=== PATIENT | male | born 1930 | race Caucasian/White ===

== ENCOUNTER → 2016-10-13 | Outpatient (CLI) | payer MEDICARE ==
[~2016-10-13] MED LIST: ACET1TAB43 PO; AMLO10TA PO; AMLO10TA2 PO; ASPI-892 PO; ASPI-983 PO; ASPI500T15 PO; ATOR40TA PO; CELE200C PO; CLCX200C PO; CLOP75TA28 PO; CLPD75T PO; HCTZ; HYDR25TA4 PO; MELA5CAP PO; MELO7.5T46 PO; METO-274 PO; MTP100TCR PO; MUPI22OI29 EXT; SENN-20 PO; ZLP5T PO
--- OUTSIDE RECORDS SUMMARY | 2016-10-13 05:22 | XMS REPORT | Continuity of Care Document ---
Author Author [facility] Organization [facility] Address Unknown Phone Unavailable Care Team Providers Care Business Professor Name Role Phone GIANFRANCO ALEXANDER MD PCP Insurance Providers Payer Name Policy Number Subscriber Name Relationship [employer] Medicare [id number] Tiburcio Dacosta 18 Self / Same As Patient Blue Cross [facility] Supp [id number] Tiburcio Dacosta 18 Self / Same As Patient Advance Directives Directive Response Recorded Date/Time Advance Directives No 01/01/16 10:07am Health Care Power of Remote Broadcast Technician No 01/01/16 10:07am Resuscitation Status Full Code 01/01/16 10:07am Problems No problem information available. Medications Current Home Medications Medication Dose Units Route Directions Days/Qty Instructions Start Date Metoprolol Succinate 100 Mg 100 Mg Oral Daily 08/25/10 Zolpidem Tartrate 5 Mg 2.5 Mg Oral Bedtime as needed for Sleep TAKES 1/ 2 (5MG) TABLET 03/20/15 Clopidogrel Bisulfate 75 Mg 75 Mg Oral Daily 30 03/21/15 Amlodipine Besylate 10 Mg 10 Mg Oral Daily 01/01/16 Aspirin 500 Mg 500 Mg Oral As Needed as needed for Pain 01/01/16 Melatonin 5 Mg 5 Mg Oral As Needed as needed for Sleep 01/01/16 Past Home Medications Medication Directions Ordered Status [Hctz] , 08/25/10 Discontinued Amlodipine Besylate 10 Mg Tablet, 10 Mg Oral With Evening Meal 11/16/14 Discontinued Hydrochlorothiazide 25 Mg Tablet, 25 Mg Oral Daily @ 1200 11/16/14 Discontinued Celecoxib 200 Mg Capsule, 200 Mg Oral Bedtime 11/16/14 Discontinued Aspirin 81 Mg Tabec, 81 Mg Oral Daily 03/20/15 Discontinued Mupirocin 22 Gm Oint, 22 Gm External Three Times A Day 04/08/15 Discontinued Social History Social History Problem Response Recorded Date/Time Alcohol Use Denies Use 01/01/2016 10:11am Recreational Drug Use No 01/01/2016 10:11am Recent Foreign Travel No 01/01/2016 10:11am Recent Infectious Disease Exposure No 01/01/2016 10:11am Hospitalization with Isolation Denies 01/01/2016 10:11am HIV/AIDS No 01/01/2016 10:11am Smoking Status Former Smoker 01/01/2016 10:08am Do you dip or chew tobacco? No 01/01/2016 10:08am Query Response Start Date Stop Date Smoking Status Former Smoker 01/18/2015 Hospital Discharge Instructions No hospital discharge instructions. Plan of Care Prescriptions See Medication Section Functional Status No functional status results. Allergies, Adverse Reactions, Alerts Allergen Type Severity Reaction Status Last Updated milk ([id number]) Allergy Intermediate UPSET STOMACH Active 01/01/16 Immunizations Name Given Type Date of Pneumonia Vaccine 06/28/11 Historical Date of Influenza Vaccine 06/02/15 Historical Tetanus Booster (TDap) More than 5yrs Historical Vital Signs Acute Vital Signs Vital Response Date/Time Height 5 ft 6 in Weight 196 lb Body Mass Index 31.6 kg/m^2 Results Laboratory Results Test Name Result Units Flags Reference Collection Date/Time Result Date/ Time Comments White Blood Count 5.7 10^3/uL 4.3-11.0 01/01/2016 10:55am 01/01/2016 11 :11am Red Blood Count 5.57 10^6/uL 4.35-5.85 01/01/2016 10:55am 01/01/2016 11 :11am Hemoglobin 16.4 G/DL 13.3-17.7 01/01/2016 10:55am 01/01/2016 11:11am Hematocrit 49 % 40-54 01/01/2016 10:55am 01/01/2016 11:11am Mean Corpuscular Volume 87 FL 80-99 01/01/2016 10:55am 01/01/2016 11: 11am Mean Corpuscular Hemoglobin 29 PG 25-34 01/01/2016 10:55am 01/01/2016 11:11am Mean Corpuscular Hemoglobin Concent 34 G/DL 32-36 01/01/2016 10:55am 11:11am Red Cell Distribution Width 13.3 % 10.0-14.5 01/01/2016 10:55am 2015 11:11am Platelet Count 167 10^3/uL 130-400 01/01/2016 10:55am 01/01/2016 11: 11am Mean Platelet Volume 10.1 FL 7.4-10.4 01/01/2016 10:55am 01/01/2016 11: 11am Neutrophils (%) (Auto) 60 % 42-75 01/01/2016 10:55am 01/01/2016 11: 11am Lymphocytes (%) (Auto) 21 % 12-44 01/01/2016 10:55am 01/01/2016 11: 11am Monocytes (%) (Auto) 13 % H 0-12 01/01/2016 10:55am 01/01/2016 11:11am Eosinophils (%) (Auto) 6 % 0-10 01/01/2016 10:55am 01/01/2016 11:11am Basophils (%) (Auto) 0 % 0-10 01/01/2016 10:55am 01/01/2016 11:11am Neutrophils # (Auto) 3.4 X 10^3 1.8-7.8 01/01/2016 10:55am 01/01/2016 11:11am Lymphocytes # (Auto) 1.2 X 10^3 1.0-4.0 01/01/2016 10:55am 01/01/2016 11:11am Monocytes # (Auto) 0.7 X 10^3 0.0-1.0 01/01/2016 10:55am 01/01/2016 11: 11am Eosinophils # (Auto) 0.3 10^3/uL 0.0-0.3 01/01/2016 10:55am 01/01/2016 11:11am Basophils # (Auto) 0.0 10^3/uL 0.0-0.1 01/01/2016 10:55am 01/01/2016 11 :11am Prothrombin Time 13.2 SEC 12.2-14.7 01/01/2016 10:55am 01/01/2016 11: 22am INR Comment 1.0 0.8-1.4 01/01/2016 10:55am 01/01/2016 11:22am INTERPRETIVE DATA SUGGESTED THERAPEUTIC RANGE FOR INR'S: VENOUS THROMBOSIS, PULMONARY EMBOLISM, OR PREVENTION OF SYSTEMIC EMBOLISM (EG. IN ATRIAL FIBRILLATION): 2.0 - 3.0 MECHANICAL PROSTHETIC HEART VALVES: 2.5 - 3.5* *NOTE: INR'S UP TO 4.5 MAY BE NECESSARY IN SELECTED GROUPS OF HIGH RISK PATIENTS. [place] [employer]ANS CONSENSUS CONFERENCE ON ANTITHROMBOTIC THERAPY (2000). Urine Color YELLOW 01/02/2016 9:00am 01/02/2016 10:37am Urine Clarity CLEAR 01/02/2016 9:00am 01/02/2016 10:37am Urine pH 6 5-9 01/02/2016 9:00am 01/02/2016 10:37am Urine Specific [place] 1.015 * 1.016-1.022 01/02/2016 9:00am 2015 10:37am Urine Protein NEGATIVE NEGATIVE 01/02/2016 9:00am 01/02/2016 10:37am Urine Glucose (UA) NEGATIVE NEGATIVE 01/02/2016 9:00am 01/02/2016 10: 37am Urine RBC (Auto) NEGATIVE NEGATIVE 01/02/2016 9:00am 01/02/2016 10: 37am Urine Ketones NEGATIVE NEGATIVE 01/02/2016 9:00am 01/02/2016 10:37am Urine Nitrite NEGATIVE NEGATIVE 01/02/2016 9:00am 01/02/2016 10:37am Urine Bilirubin NEGATIVE NEGATIVE 01/02/2016 9:00am 01/02/2016 10: 37am Urine Urobilinogen NORMAL MG/DL NORMAL 01/02/2016 9:00am 01/02/2016 10: 37am Urine Leukocyte Esterase NEGATIVE NEGATIVE 01/02/2016 9:00am 2015 10:37am Urine RBC NONE /HPF 01/02/2016 9:00am 01/02/2016 10:37am Urine WBC NONE /HPF 01/02/2016 9:00am 01/02/2016 10:37am Urine Bacteria TRACE /HPF 01/02/2016 9:00am 01/02/2016 10:37am Urine Squamous Epithelial Cells RARE /HPF 01/02/2016 9:00am 2015 10:37am Urine Crystals NONE /LPF 01/02/2016 9:00am 01/02/2016 10:37am Urine Casts NONE /LPF 01/02/2016 9:00am 01/02/2016 10:37am Urine Mucus NEGATIVE /LPF 01/02/2016 9:00am 01/02/2016 10:37am Urine Culture Indicated NO 01/02/2016 9:00am 01/02/2016 10:37am Sodium Level 141 MMOL/L 135-145 01/01/2016 10:55am 01/01/2016 11:29am Potassium Level 4.2 MMOL/L 3.6-5.0 01/01/2016 10:55am 01/01/2016 11: 29am Chloride Level 107 MMOL/L 98-107 01/01/2016 10:55am 01/01/2016 11:29am Carbon Dioxide Level 26 MMOL/L 21-32 01/01/2016 10:55am 01/01/2016 11: 29am Anion Gap 8 MMOL/L 5-14 01/01/2016 10:55am 01/01/2016 11:29am Blood Urea Nitrogen 16 MG/DL 7-18 01/01/2016 10:55am 01/01/2016 11: 29am Creatinine 1.06 MG/DL 0.60-1.30 01/01/2016 10:55am 01/01/2016 11:29am BUN/Creatinine Ratio 15 01/01/2016 10:55am 01/01/2016 11:29am Estimat Glomerular Filtration Rate > 60 01/01/2016 10:55am 2015 11:29am GFR INTERPRETIVE DATA UNITS FOR ESTIMATED GFR (eGFR): mL/min/1.73 M2 REFERENCE RANGE FOR ESTIMATED GFR (eGFR) eGFR NORMAL eGFR >60 MODERATELY DECREASED eGFR 30-59 SEVERLY DECREASED eGFR 15-29 KIDNEY FAILURE <15 (OR DIALYSIS) Glucose Level 100 MG/DL 70-105 01/01/2016 10:55am 01/01/2016 11:29am Calcium Level 8.8 MG/DL 8.5-10.1 01/01/2016 10:55am 01/01/2016 11:29am Microbiology Results Procedure Source Result Collection Date/Time Result Date/Time MRSA Screen Nasal MRSA not isolated 01/01/2016 10:50am 01/02/2016 3:08pm Procedures Procedure Status Date Provider(s) Tracing only of electrocardiogram Completed 01/01/16 GERALD JOHNSTON DO Encounters Encounter Location Arrival/Admit Date Discharge/Depart Date Attending Provider Discharged Recurring [facility] 01/01/16 9:55am 11:59pm GERALD JOHNSTON DO
[2016-10-13 05:47] LABS: ALBUMIN 3.7 G/DL (3.2-4.5); BILIRUBIN,TOTAL 0.7 MG/DL (0.1-1.0); CALCIUM 8.8 MG/DL (8.5-10.1); CREATININE SERUM 1.15 MG/DL (0.60-1.30); POTASSIUM 4.1 MMOL/L (3.6-5.0); TOTAL PROTEIN 6.8 G/DL (6.4-8.2)
== END ==
LOC: LAB 05:19
PROVIDERS: ATTEND Nurse Practitioner Family
DX: I25.10 Atherosclerotic heart disease of native coronary artery without angina pectoris (principal); E78.5 Hyperlipidemia, unspecified
CPT/HCPCS: 36415; 80053; 80061

== ENCOUNTER → 2016-10-14 | Outpatient (CLI) | payer MEDICARE ==
--- OUTSIDE RECORDS SUMMARY | 2016-10-14 12:23 | XMS REPORT | Continuity of Care Document ---
Author Author [facility] Organization [facility] Address Unknown Phone Unavailable Care Team Providers Care Tile Setter Supervisor Name Role Phone GIANFRANCO ALEXANDER MD PCP Insurance Providers Payer Name Policy Number Subscriber Name Relationship Wps Medicare [id number] Tiburcio Dacosta 18 Self / Same As Patient Blue Cross [facility] Supp [id number] Tiburcio Dacosta 18 Self / Same As Patient Advance Directives Directive Response Recorded Date/Time Advance Directives No 01/01/16 10:07am Health Care Power of Cosmetic Sales No 01/01/16 10:07am Resuscitation Status Full Code [...] Type Severity Reaction Status Last Updated milk ([id number]) Allergy Intermediate UPSET STOMACH Active 01/01/16 Immunizations [...] SELECTED GROUPS OF HIGH RISK PATIENTS. [place] [place] [employer] CONSENSUS CONFERENCE ON ANTITHROMBOTIC THERAPY (2000). Urine Color YELLOW 01/02/2016 9:00am 01/02/2016 10:37am Urine Clarity CLEAR 01/02/2016 9:00am 01/02/2016 10:37am Urine pH 6 5-9 01/02/2016 9:00am 01/02/2016 10:37am Urine Specific [place] 1.015 * 1.016-1.022 01/02/2016 9:00am 2015 10:37am [...] Discharge/Depart Date Attending Provider Discharged Recurring [facility] 01/01/16 9:55am 11:59pm GERALD JOHNSTON DO
== END ==
LOC: RAD 12:12
PROVIDERS: ATTEND Internal Medicine Cardiovascular Disease
DX: I25.10 Atherosclerotic heart disease of native coronary artery without angina pectoris (principal); I65.23 Occlusion and stenosis of bilateral carotid arteries; I10 Essential (primary) hypertension; I73.9 Peripheral vascular disease, unspecified
CPT/HCPCS: 93923

== ENCOUNTER → 2017-01-31 | Outpatient (CLI) | payer MEDICARE ==
[~2017-01-31] MED LIST changes: +GADOBUTROL 10 MMOL/10 ML (GADAVIST) VIAL IV ONE
[2017-01-31 13:07] LABS: BLOOD UREA NITROGEN 16 MG/DL (7-18); BUN/CREATININE RATIO 14; CREATININE SERUM 1.13 MG/DL (0.60-1.30); GFR ESTIMATED > 60
--- NOTE | 2017-01-31 14:55 | Diagnostic Imaging Report ---
INDICATION: Chronic dizziness. Increasing vision loss since June of 2016. FINDINGS: The ventricles are normal in size, shape and position. There is no diffusion restriction with no acute parenchymal edema, hemorrhage, mass or abnormal parenchymal enhancement. There is cortical atrophy present. There are periventricular white matter changes present consistent with small vessel disease. There is no extra-axial mass or abnormal meningeal enhancement. Images through the orbits show no intraorbital or intraocular abnormality seen. The extraocular muscles are symmetrical and normal in appearance as are the optic nerves. There is no abnormal enhancement. IMPRESSION: There is age-related atrophy. There are changes of small vessel disease involving the white matter. No acute abnormality is seen. No intraorbital abnormality is seen. Dictated by: Dictated on workstation # [id number]
== END ==
LOC: RAD 12:31
PROVIDERS: ATTEND Optometrist
DX: H47.019 Ischemic optic neuropathy, unspecified eye (principal)
CPT/HCPCS: 36415; 70553; 82565; 84520

== ENCOUNTER 2017-05-11 17:04 | Emergency (ER) | payer MEDICARE ==
[~2017-05-11] VITALS: Ht 167.6 cm; Wt 93.0 kg
[~2017-05-11 17:04] MED LIST changes: -GADOBUTROL 10 MMOL/10 ML (GADAVIST) VIAL IV ONE
--- NOTE | 2017-05-11 17:20 | ED GI ---
General Chief Complaint: Rect Problems Stated Complaint: RECTAL BLEEDING Nursing Triage Note: PT REPORTS HE HAD A PROCEDURE ON HIS PROSTATE AT [address] CORDOVA. PT REPORTS RECTAL BLEEDING AT 1615. Sepsis Screen: No Definite Risk Source of Information: Patient Exam Limitations: No Limitations History of Present Illness Time Seen By Provider: 17:20 Initial Comments He had a transrectal prostate biopsy done today here by Dr. Cordova. He is on aspirin and Plavix but has been off of the Plavix for 1 week prior to this procedure. He is on these for history of coronary stents. Timing/Duration: 1-2 Days Severity/Quality: Moderate Radiation: No Radiation Activities at Onset: None Allergies and Home Medications Allergies Coded Allergies: tramadol (Unverified Allergy, Intermediate, 09/02/16) meclizine (Unverified Allergy, Mild, 09/02/16) Home Medications Amlodipine Besylate 10 Mg Tablet, 10 MG PO DAILY, (Reported) Aspirin 81 Mg Tablet.dr, 81 MG PO DAILY, (Reported) Atorvastatin Calcium 40 Mg Tablet, 40 MG PO HS, #30 Ref 5 Prescribed by: MANDEEP SNIDER on 09/03/16 0938 Clopidogrel Bisulfate 75 Mg Tablet, 75 MG PO 1700, (Reported) Melatonin 5 Mg Capsule, 5 MG PO HS PRN for SLEEP, (Reported) Meloxicam 7.5 Mg Tablet, 7.5 MG PO DAILY@1200, (Reported) Metoprolol Succinate 100 Mg Tab.er.24h, 100 MG PO DAILY, (Reported) Zolpidem Tartrate 5 Mg Tablet, 2.5 MG PO HS PRN for SLEEP, (Reported) TAKES 1/2 (5MG) TABLET Review of Systems Constitutional: see HPI EENTM: No Symptoms Reported Respiratory: No Symptoms Reported Cardiovascular: No Symptoms Reported Gastrointestinal: See HPI, Rectal Bleeding Genitourinary: No Symptoms Reported Musculoskeletal: no symptoms reported Skin: no symptoms reported Psychiatric/Neurological: No Symptoms Reported Endocrine: No Symptoms Reported Hematologic/Lymphatic: No Symptoms Reported Past Fdxksqm-[id number]-Bsoxqr Hx Patient Social History Alcohol Use: Denies Use Recreational Drug Use: No Smoking Status: Former Smoker Type Used: Pipe Former Smoker/When Quit: Jan 18, 2015 Recent Foreign Travel: No Contact w/Someone Who Travel: No Recent Infectious Disease Expo: No Recent Hopitalizations: No Immunizations Up To Date Tetanus Booster (TDap): More than 5yrs Date of Pneumonia Vaccine: Sep 02, 2013 Date of Influenza Vaccine: Jun 03, 2016 Seasonal Allergies Seasonal Allergies: Yes Surgeries HX Surgeries: Yes Surgeries: Cardiac, Orthopedic Respiratory Hx Respiratory Disorders: No Cardiovascular Hx Cardiac Disorders: Yes (HX STENTS-summer) Cardiac Disorders: Hypertension Neurological Hx Neurological Disorders: No Reproductive System HIV/AIDS: No Genitourinary Hx Genitourinary Disorders: No Gastrointestinal Hx Gastrointestinal Disorders: No Musculoskeletal Hx Musculoskeletal Disorders: Yes (OA LEFT KNEE) Musculoskeletal Disorders: Degenerate Disk Disease, Arthritis, Chronic Back Pain Endocrine Hx Endocrine Disorders: No HEENT HX ENT Disorders: Yes (GLASSES, DENTURES) HEENT Disorders: Cataract Loss of Vision: Bilateral Hearing Impairment: Bilateral Hearing Aide Cancer Hx Cancer: Yes Cancer: Skin Psychosocial Hx Psychiatric Problems: No Integumentary HX Skin/Integumentary Disorder: Yes (HX SKIN CANCER, DRY SKIN) Blood Transfusions Hx Blood Disorders: No Adverse Reaction to a Blood Tr: No Physical Exam Vital Signs VS - Last 72 Hours, by Label 05/11/17 17:10 Temp 97.9 Pulse 77 Resp 16 B/P (MAP) 141/87 Pulse Ox 95 Capillary Refill : Less Than 3 Seconds General Appearance: WD/WN, no apparent distress HEENT: PERRL/EOMI, normal ENT inspection Neck: non-tender, full range of motion Respiratory: normal breath sounds, no respiratory distress, no accessory muscle use Gastrointestinal: normal bowel sounds, non tender, soft Rectal: other (there is some bright red blood at the anus. There is no active bleeding at this time. He is certainly not near syncopal, hypotensive or anywhere near hemorrhagic shock.) Progress/Results/Core Measures Results/Orders Lab Results Laboratory Tests Test 05/11/17 17:54 Range/Units White Blood Count 6.2 4.3-11.0 10^3/uL Red Blood Count 5.11 4.35-5.85 10^6/uL Hemoglobin 14.8 13.3-17.7 G/DL Hematocrit 45 40-54 % Mean Corpuscular Volume 88 80-99 FL Mean Corpuscular Hemoglobin 29 25-34 PG Mean Corpuscular Hemoglobin Concent 33 32-36 G/DL Red Cell Distribution Width 13.4 10.0-14.5 % Platelet Count 152 130-400 10^3/uL Mean Platelet Volume 10.4 7.4-10.4 FL Neutrophils (%) (Auto) 68 42-75 % Lymphocytes (%) (Auto) 15 12-44 % Monocytes (%) (Auto) 12 0-12 % Eosinophils (%) (Auto) 5 0-10 % Basophils (%) (Auto) 0 0-10 % Neutrophils # (Auto) 4.2 1.8-7.8 X 10^3 Lymphocytes # (Auto) 0.9 L 1.0-4.0 X 10^3 Monocytes # (Auto) 0.8 0.0-1.0 X 10^3 Eosinophils # (Auto) 0.3 0.0-0.3 10^3/uL Basophils # (Auto) 0.0 0.0-0.1 10^3/uL My Orders Orders - ELLY FAM APRN Cbc With Automated Diff (05/11/17 17:14) Vital Signs/I&O Vital Sign - Last 12Hours 05/11/17 17:10 Temp 97.9 Pulse 77 Resp 16 B/P (MAP) 141/87 Pulse Ox 95 Blood Pressure Mean: 105 Departure Communication Progress Notes 1803-I did speak with Dr. Cordova. Some bleeding as expected. He would like to have the patient stop both the aspirin and the Plavix for 2-3 days until he is without any rectal bleeding then he may resume it. Impression Impression: Primary Impression: postoperative bleeding Disposition: 01 HOME, SELF-CARE Condition: Stable Departure-Patient Inst. Decision time for Depature: 18:02 Referrals: GIANFRANCO ALEXANDER MD (PCP/Family) Primary Care Physician Patient Instructions: NO INSTRUCTIONS GIVEN Add. Discharge Instructions: 1. Do not take your aspirin or Plavix for the next 3 days. Then if you are not bleeding you may resume them 2. Take a stool softener daily and expect to have a little persistent bleeding for the next 1-2 days at least with bowel movements. Reasons to become concerned are if you are passing clots of blood from the rectum, become lightheaded or short of breath or pass out. If you have any of these things you should return to the emergency room All discharge instructions reviewed with patient and/or family. Voiced understanding. ELLY FAM APRN May 11, 2017 17:20
[2017-05-11 18:02] LABS: BASOPHILS % (AUTO) 0 % (0-10); EOSINOPHILS # (AUTO) 0.3 10^3/uL (0.0-0.3); EOSINOPHILS % (AUTO) 5 % (0-10); LYMPHOCYTES # (AUTO) 0.9 X 10^3 (1.0-4.0); LYMPHOCYTES % (AUTO) 15 % (12-44); MEAN CORPUSCULAR HEMOGLOBIN 29 PG (25-34); MEAN CORPUSCULAR HGB CONC 33 G/DL (32-36); MEAN CORPUSCULAR VOLUME 88 FL (80-99); MEAN PLATELET VOLUME 10.4 FL (7.4-10.4); MONOCYTES # (AUTO) 0.8 X 10^3 (0.0-1.0); MONOCYTES % (AUTO) 12 % (0-12); NEUTROPHILS # (AUTO) 4.2 X 10^3 (1.8-7.8); NEUTROPHILS % (AUTO) 68 % (42-75); PLATELET COUNT 152 10^3/uL (130-400); RED BLOOD COUNT 5.11 10^6/uL (4.35-5.85); RED CELL DISTRIBUTION WIDTH 13.4 % (10.0-14.5); WHITE BLOOD COUNT 6.2 10^3/uL (4.3-11.0)
[2017-05-11 18:24] VITALS: BP 145/82
== END 2017-05-11 18:24 | disposition home or self-care (01) ==
LOC: EDUNIT# 17:04 → ER 17:05
DX: N99.820 Postprocedural hemorrhage of a genitourinary system organ or structure following a genitourinary system procedure (principal); I10 Essential (primary) hypertension; M19.90 Unspecified osteoarthritis, unspecified site; Z98.890 Other specified postprocedural states; Z85.828 Personal history of other malignant neoplasm of skin; Z87.891 Personal history of nicotine dependence; Z79.82 Long term (current) use of aspirin; Z79.02 Long term (current) use of antithrombotics/antiplatelets; Z95.5 Presence of coronary angioplasty implant and graft
CPT/HCPCS: 36415; 85025; 99283

== ENCOUNTER → 2017-05-21 | Outpatient (CLI) | payer MEDICARE ==
[~2017-05-21] MED LIST changes: +CATHETER FLUSH 10 ML SYR IV PRN; +IOHEXOL 350 MG/ML 100 ML (OMNIPAQUE 350) VIAL IV ONE; +NS 100 ML (IVPB) BAG IV ONE
[2017-05-21 10:21] LABS: BLOOD UREA NITROGEN 15 MG/DL (7-18); BUN/CREATININE RATIO 15; CREATININE SERUM 1.02 MG/DL (0.60-1.30); GFR ESTIMATED > 60
--- NOTE | 2017-05-21 11:51 | Diagnostic Imaging Report ---
PROCEDURE: CT abdomen and pelvis with contrast. TECHNIQUE: Multiple contiguous axial images were obtained through the abdomen and pelvis after administration of intravenous contrast. INDICATION: History of prostate cancer. COMPARISON: 10/18/2008 FINDINGS: Included views of the lung bases show multiple calcified pulmonary granuloma. Multiple calcified right hilar lymph nodes are also noted. There is a partially visualized noncalcified micronodule on the left that measures approximately 6 mm. Note is made that this is new when compared to 10/18/2008. Note is made of significant calcified coronary atherosclerosis. CT abdomen: There is colonic diverticulosis, but no CT evidence of acute diverticulitis. Normal appendix is identified. Small bowel loops are nondistended. Evaluation of the liver demonstrates innumerable rounded hypodense and hypoenhancing foci scattered throughout. These are too small to adequately characterize based on this exam, but overall size and distribution is stable compared to prior study. This favors multiple benign cysts. Gallstone is noted within the lumen of the gallbladder. There is no gallbladder wall thickening or pericholecystic free fluid on this exam. The kidneys, bilateral adrenal glands, spleen, and pancreas have a normal CT appearance. There is no loculated fluid collection, free fluid, nor free air within the abdomen. No abnormal mesenteric or retroperitoneal adenopathy is seen. There is moderate calcified aortic and arterial atherosclerosis. Bony structures show no acute abnormalities. CT pelvis: Urinary bladder is grossly unremarkable. There is no loculated fluid collection, free fluid, nor free air within the pelvis. There is a prominent presacral lymph node that measures 1.6 cm in diameter. This is new when compared to 10/18/2008. Prominent right-sided iliac chain lymph node is also noted and measures 1.4 x 1 cm. This also appears to be new. Osseous structures show no new lytic or blastic lesions. IMPRESSION: 1. Interval development of right sided iliac chain and presacral lymph nodes. Given the clinical history of prostate cancer, these findings are concerning for metastatic disease. 2. Innumerable hypodense hypoenhancing foci scattered throughout the liver. Again, overall appearance is stable suggesting benign cysts. 3. Cholelithiasis. 4. Multiple calcified granuloma within the visualized portions of the lung bases and multiple calcified right hilar lymph nodes. 5. Partially visualized noncalcified pulmonary micronodule within the left lower lobe. Further characterization with dedicated postcontrast CT chest is recommended. Dictated by: Dictated on workstation # [id number]
--- NOTE | 2017-05-21 18:05 | Diagnostic Imaging Report ---
EXAMINATION: Whole body bone scan. INDICATION: Prostate CA. TECHNIQUE: This study was performed following administration of 26.9 mCi of 99m-technetium MDP. Anterior and posterior whole body images were obtained. Lateral spot films of the skull and thorax were also obtained. COMPARISON: There are no previous nuclear medicine bone scans available for comparison. FINDINGS: On this study, there is generalized distribution of the radiotracer throughout the osseous structures. There is no focal area of increased or decreased activity to suggest metastatic disease related to the patient's diagnosis of prostate carcinoma. There are areas of slightly increased activity involving the shoulder joints and spine. These are probably degenerative in nature. 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 There is no abnormal accumulation of the radiotracer in this area to suggest loosening of the prosthesis. Both kidneys do show excretion of the radiotracer. IMPRESSION: There is no evidence for metastatic skeletal disease. Dictated by: Dictated on workstation # [id number]
== END ==
LOC: CARD 09:45
PROVIDERS: ATTEND Urology
DX: C61 Malignant neoplasm of prostate (principal); K80.20 Calculus of gallbladder without cholecystitis without obstruction; R91.8 Other nonspecific abnormal finding of lung field
CPT/HCPCS: 36415; 74177; 78306; 82565; 84520

== ENCOUNTER 2017-08-20 19:59 | Emergency (ER) | payer MEDICARE ==
[~2017-08-20] VITALS: Ht 170.2 cm; Wt 90.7 kg
[~2017-08-20 19:59] MED LIST changes: -CATHETER FLUSH 10 ML SYR IV PRN; -IOHEXOL 350 MG/ML 100 ML (OMNIPAQUE 350) VIAL IV ONE; -METO-274 PO; +METO-395 PO; -NS 100 ML (IVPB) BAG IV ONE
--- NOTE | 2017-08-20 20:28 | ED General ---
General Chief Complaint: Cardiac/General Problems Stated Complaint: SWELLING IN LEGS AND ANKLES Nursing Triage Note: PATIENT HAS EXPERIENCED INCREASED BILAT LOWER EXTREM. SWELLING OVER THE PAST COUPLE OF DAYS. Nursing Sepsis Screen: No Definite Risk Source of Information: Patient, Family Exam Limitations: No Limitations History of Present Illness Time Seen by Provider: 20:10 Initial Comments Here with report of bilateral lower extremity swelling over the last few days. Does admit to having increased salt in his diet recently. Denies chest pain or breathing problems although does state that he does have some shortness of breath. Notes recent weight gain. Swelling is up to the knees bilateral. Denies recent injury. Denies fever or chills although does have hot flashes with his prostate medicines. Denies history of heart failure. Timing/Duration: 3-4 Days Severity: Moderate Associated Systoms: No Chest Pain, No Fever/Chills, No Nausea/Vomiting, No Weakness Allergies and Home Medications Allergies Coded Allergies: tramadol (Unverified Allergy, Intermediate, 09/02/16) meclizine (Unverified Allergy, Mild, 09/02/16) Home Medications Amlodipine Besylate 10 Mg Tablet, 10 MG PO DAILY, (Reported) Aspirin 81 Mg Tablet.dr, 81 MG PO DAILY, (Reported) Atorvastatin Calcium 40 Mg Tablet, 40 MG PO HS, #30 Ref 5 Prescribed by: MANDEEP SNIDER on 09/03/16 0938 Clopidogrel Bisulfate 75 Mg Tablet, 75 MG PO 1700, (Reported) Melatonin 5 Mg Capsule, 5 MG PO HS PRN for SLEEP, (Reported) Meloxicam 7.5 Mg Tablet, 7.5 MG PO DAILY@1200, (Reported) Metoprolol Succinate 100 Mg Tab.er.24h, 100 MG PO DAILY, (Reported) Zolpidem Tartrate 5 Mg Tablet, 2.5 MG PO HS PRN for SLEEP, (Reported) TAKES 1/2 (5MG) TABLET Constitutional: see HPI, No chills, No fever EENTM: no symptoms reported Respiratory: see HPI Cardiovascular: see HPI, No chest pain, No edema Gastrointestinal: No abdominal pain, No nausea, No vomiting Genitourinary: no symptoms reported Musculoskeletal: see HPI, muscle pain (lower extremities knees down.), No muscle cramps Skin: No change in color, No lesions Psychiatric/Neurological: No Symptoms Reported All Other Systems Reviewed Negative Unless Noted: Yes Past Nihlekc-Aaddom-Txgudo Hx Patient Social History Alcohol Use: Denies Use Recreational Drug Use: No Type Used: Pipe Former Smoker, Quit: Sep 02, 2014 Recent Foreign Travel: No Contact w/Someone Who Travel: No Recent Infectious Disease Expo: No Recent Hopitalizations: No Immunizations Up To Date Tetanus Booster (TDap): More than 5yrs Date of Pneumonia Vaccine: Sep 02, 2013 Date of Influenza Vaccine: Jun 03, 2016 Seasonal Allergies Seasonal Allergies: Yes Surgeries History of Surgeries: Yes Surgeries: Cardiac, Orthopedic Respiratory History of Respiratory Disorde: No Cardiovascular History of Cardiac Disorders: Yes Cardiac Disorders: Hypertension Neurological History of Neurological Disord: No Reproductive System HIV/AIDS: No Gastrointestinal History of Gastrointestinal Di: No Musculoskeletal History of Musculoskeletal Dis: Yes Musculoskeletal Disorders: Degenerate Disk Disease, Arthritis, Chronic Back Pain HEENT History of HEENT Disorders: Yes HEENT Disorders: Cataract Loss of Vision: Bilateral Hearing Impairment: Bilateral Hearing Aide Cancer History of Cancer: Yes Cancer: Skin Blood Transfusions Adverse Reaction to a Blood Tr: No Reviewed Nursing Assessment Reviewed/Agree w Nursing PMH: Yes Physical Exam Vital Signs Vital Sign - Last 12Hours 08/20/17 20:07 Temp 97.9 Pulse 83 Resp 20 B/P (MAP) 170/83 Pulse Ox 94 O2 Delivery Room Air Capillary Refill : Less Than 3 Seconds General Appearance: No Apparent Distress, WD/WN HEENT: PERRL/EOMI, Pharynx Normal Neck: Non Tender, Supple Respiratory: Lungs Clear, Normal Breath Sounds Cardiovascular: Regular Rate, Rhythm, No Murmur Gastrointestinal: Non Tender, Soft Back: Normal Inspection, No CVA Tenderness, No Vertebral Tenderness Extremity: Normal Range of Motion, Pedal Edema (3+ edema up to the level of the knees bilateral) Neurologic/Psychiatric: Alert, Oriented x3 Skin: Normal Color, Warm/Dry Progress/Results/Core Measures Suspected Sepsis Recent Fever Within 48 Hours: No Infection Criteria Present: None New/Unexplained Altered Menta: No Sepsis Screen: No Definite Risk Sepsis Diagnosis: SIRS Temperature:97.9 Pulse: 83 Respiratory Rate: 20 Laboratory Tests 08/20/17 20:50: White Blood Count 6.0 Blood Pressure 170 /83 Mean: 112 Laboratory Tests 08/20/17 20:50: Creatinine 1.11, Platelet Count 150, Total Bilirubin 0.5 Results/Orders Lab Results Laboratory Tests Test 08/20/17 20:50 Range/Units White Blood Count 6.0 4.3-11.0 10^3/uL Red Blood Count 4.45 4.35-5.85 10^6/uL Hemoglobin 13.2 L 13.3-17.7 G/DL Hematocrit 39 L 40-54 % Mean Corpuscular Volume 87 80-99 FL Mean Corpuscular Hemoglobin 30 25-34 PG Mean Corpuscular Hemoglobin Concent 34 32-36 G/DL Red Cell Distribution Width 12.5 10.0-14.5 % Platelet Count 150 130-400 10^3/uL Mean Platelet Volume 11.2 H 7.4-10.4 FL Neutrophils (%) (Auto) 53 42-75 % Lymphocytes (%) (Auto) 20 12-44 % Monocytes (%) (Auto) 14 H 0-12 % Eosinophils (%) (Auto) 11 H 0-10 % Basophils (%) (Auto) 1 0-10 % Neutrophils # (Auto) 3.2 1.8-7.8 X 10^3 Lymphocytes # (Auto) 1.2 1.0-4.0 X 10^3 Monocytes # (Auto) 0.9 0.0-1.0 X 10^3 Eosinophils # (Auto) 0.7 H 0.0-0.3 10^3/uL Basophils # (Auto) 0.0 0.0-0.1 10^3/uL Sodium Level 140 135-145 MMOL/L Potassium Level 3.8 3.6-5.0 MMOL/L Chloride Level 106 98-107 MMOL/L Carbon Dioxide Level 23 21-32 MMOL/L Anion Gap 11 5-14 MMOL/L Blood Urea Nitrogen 20 H 7-18 MG/DL Creatinine 1.11 0.60-1.30 MG/DL Estimat Glomerular Filtration Rate > 60 BUN/Creatinine Ratio 18 Glucose Level 146 H 70-105 MG/DL Calcium Level 8.9 8.5-10.1 MG/DL Magnesium Level 2.1 1.8-2.4 MG/DL Total Bilirubin 0.5 0.1-1.0 MG/DL Aspartate Amino Transf (AST/SGOT) 27 5-34 U/L Alanine Aminotransferase (ALT/SGPT) 31 0-55 U/L Alkaline Phosphatase 67 40-136 U/L B-Type Natriuretic Peptide 87.3 <100.0 PG/ML Total Protein 6.9 6.4-8.2 GM/DL Albumin 3.6 3.2-4.5 GM/DL My Orders Orders - AIDAN CUEVA MD BNP (08/20/17 20:17) Cbc With Automated Diff (08/20/17 20:17) Comprehensive Metabolic Panel (08/20/17 20:17) Magnesium (08/20/17 20:17) Chest Pa/Lat (2 View) (08/20/17 20:17) Saline Lock/Iv-Start (08/20/17 20:17) Ekg Tracing (08/20/17 20:17) Vital Signs/I&O Vital Sign - Last 12Hours 08/20/17 20:07 Temp 97.9 Pulse 83 Resp 20 B/P (MAP) 170/83 Pulse Ox 94 O2 Delivery Room Air Capillary Refill : Less Than 3 Seconds Blood Pressure Mean: 112 Progress Note : Progress Note Seen and evaluated. IV, labs, EKG and chest x-ray ordered. Monitor patient. 2200: Labs and chest x-ray reviewed. We discussed options for therapy including decrease in sodium. We will use Lasix for 3 days only and then he will follow-up with his doctor. He will start that in the morning because he doesn't want to be up all night urinating. This is reasonable. Discharged home with return precautions. Patient verbalize understanding instructions and agreement with plan. ECG Initial ECG Impression Date: Aug 20, 2017 Initial ECG Impression Time: 20:20 Initial ECG Rate: 64 Initial ECG Rhythm: Normal Sinus Comment Sinus rhythm with left axis deviation. First degree AV block and left bundle branch block. Similar to previous of 02 September 2016. No evidence of ST elevation NV. Interpreted by me. Diagnostic Imaging Diagonstic Imaging: Xray Plain Films/CT/US/NM/MRI: chest Comments VIA [facility]. [place], [place] NAME: TIBURCIO DACOSTA [facility] REC#: [id number] PT STATUS: REG ER : 1930 PHYSICIAN: AIDAN CUEVA MD ADMIT DATE: 08/20/17/ER Draft Date of Exam:08/20/17 CHEST PA/LAT (2 VIEW) EXAM: CHEST PA/LAT (2 VIEW) INDICATION: Lower extremity swelling. COMPARISON: Chest radiograph 04/01/2016. FINDINGS: Normal heart size and pulmonary vascularity. Calcified hilar lymph nodes and calcified granulomas in the right lung base. Elevation of right hemidiaphragm. No new focal pulmonary opacity, pleural effusion or pneumothorax. Postoperative changes in the cervical spine. No acute osseous findings. IMPRESSION: No acute cardiopulmonary findings. Dictated on workstation # [id number] Dict: 08/20/[id number] Trans: 08/20/172137 [id number] Interpreted by: MISA IRELAND MD Electronically signed by: Departure Impression Impression: Primary Impression: Pedal edema Disposition: 01 HOME, SELF-CARE Condition: Stable Departure-Patient Inst. Decision time for Depature: 22:00 Referrals: GIANFRANCO ALEXANDER MD (PCP/Family) Primary Care Physician Patient Instructions: Dependent Edema (DC) Add. Discharge Instructions: All discharge instructions reviewed with patient and/or family. Voiced understanding. Decrease sodium intake. Take medications as directed. Follow-up with your doctor early next week for recheck and further evaluation. Return for worse pain, fever, vomiting or weakness, breathing problems, chest pain or other concerns as needed. Scripts Furosemide (Furosemide) 40 Mg Tablet 40 MG PO DAILY for 3 Days, #3 TAB 0 Refills Prov: AIDAN CUEVA MD 08/20/17 Copy Copies To 1: GIANFRANCO ALEXANDER MD, TIMOTHY D MD Aug 20, 2017 20:28
[2017-08-20 20:59] LABS: BASOPHILS % (AUTO) 1 % (0-10); EOSINOPHILS # (AUTO) 0.7 10^3/uL (0.0-0.3); EOSINOPHILS % (AUTO) 11 % (0-10); LYMPHOCYTES # (AUTO) 1.2 X 10^3 (1.0-4.0); LYMPHOCYTES % (AUTO) 20 % (12-44); MEAN CORPUSCULAR HEMOGLOBIN 30 PG (25-34); MEAN CORPUSCULAR HGB CONC 34 G/DL (32-36); MEAN CORPUSCULAR VOLUME 87 FL (80-99); MEAN PLATELET VOLUME 11.2 FL (7.4-10.4); MONOCYTES # (AUTO) 0.9 X 10^3 (0.0-1.0); MONOCYTES % (AUTO) 14 % (0-12); NEUTROPHILS # (AUTO) 3.2 X 10^3 (1.8-7.8); NEUTROPHILS % (AUTO) 53 % (42-75); PLATELET COUNT 150 10^3/uL (130-400); RED BLOOD COUNT 4.45 10^6/uL (4.35-5.85); RED CELL DISTRIBUTION WIDTH 12.5 % (10.0-14.5)
[2017-08-20 21:22] LABS: ALANINE AMINOTRANSFERASE 31 U/L (0-55); ALBUMIN 3.6 GM/DL (3.2-4.5); ANION GAP 11 MMOL/L (5-14); ASPARTATE AMINO TRANSFERASE 27 U/L (5-34); BILIRUBIN,TOTAL 0.5 MG/DL (0.1-1.0); BLOOD UREA NITROGEN 20 MG/DL (7-18); BUN/CREATININE RATIO 18; CALCIUM 8.9 MG/DL (8.5-10.1); CARBON DIOXIDE 23 MMOL/L (21-32); CHLORIDE 106 MMOL/L (98-107); CREATININE SERUM 1.11 MG/DL (0.60-1.30); GFR ESTIMATED > 60; GLUCOSE 146 MG/DL (70-105); MAGNESIUM 2.1 MG/DL (1.8-2.4); POTASSIUM 3.8 MMOL/L (3.6-5.0); SODIUM 140 MMOL/L (135-145); TOTAL PROTEIN 6.9 GM/DL (6.4-8.2)
--- NOTE | 2017-08-20 21:38 | Diagnostic Imaging Report ---
EXAM: CHEST PA/LAT (2 VIEW) INDICATION: Lower extremity swelling. COMPARISON: Chest radiograph 04/01/2016. FINDINGS: Normal heart size and pulmonary vascularity. Calcified hilar lymph nodes and calcified granulomas in the right lung base. Elevation of right hemidiaphragm. No new focal pulmonary opacity, pleural effusion or pneumothorax. Postoperative changes in the cervical spine. No acute osseous findings. IMPRESSION: No acute cardiopulmonary findings. Dictated by: Dictated on workstation # [id number]
[2017-08-20] MEDS ORDERED: FURO40TA4 PO (22:02)
[2017-08-20 22:10] VITALS: BP 140/88
== END 2017-08-20 22:10 | disposition home or self-care (01) ==
LOC: EDUNIT# 19:59 → ER 20:00
DX: R60.0 Localized edema (principal); I10 Essential (primary) hypertension; M19.90 Unspecified osteoarthritis, unspecified site; Z79.82 Long term (current) use of aspirin; Z87.891 Personal history of nicotine dependence
CPT/HCPCS: 36415; 71020; 80053; 83735; 83880; 85025

== ENCOUNTER → 2017-09-15 | Outpatient (CLI) | payer MEDICARE ==
[~2017-09-15] VITALS: Ht 167.6 cm; Wt 93.4 kg
[~2017-09-15] MED LIST changes: +CATHETER FLUSH 10 ML SYR IV PRN; +FURO40TA4 PO; +REGADENOSON 0.4 MG/5 ML SYR (LEXISCAN) IV ONE
[2017-09-15 09:01] VITALS: BP 161/66
[2017-09-15 09:04] VITALS: BP 119/56
--- NOTE | 2017-09-15 23:41 | STRESS TEST ---
DATE OF SERVICE: 09/15/2017 RESTING AND POST-REGADENOSON TECHNETIUM-99M TETROFOSMIN SPECT CT IMAGING ORDERING PHYSICIAN: Leah Kolb MD, MA, FACP, FACC CLINICAL DIAGNOSIS: Coronary artery disease. Baseline images were carried out after injection of 10.09 mCi of technetium-99m tetrofosmin. This was followed by 0.4 mg regadenoson and 33 mCi of technetium-99m tetrofosmin for stress imaging. The electrocardiogram showed sinus rhythm with left bundle branch block. The electrocardiogram did not change significantly with the regadenoson infusion. Isolated premature ventricular contractions were seen. The patient noted mild shortness of breath following regadenoson infusion, which resolved in a few minutes. Review of images at rest and following stress does not indicate any significant perfusion defects consistent with significant myocardial ischemia or infarction. Gated images show a left ventricular ejection fraction of 66%. No distinct regional wall motion abnormalities seen. Left ventricular end diastolic volume is 62 mL. TID is absent (1.02). CONCLUSIONS: 1. No evidence of any significant myocardial ischemia or infarction on this study. 2. Normal regional wall motion. 3. Normal global left ventricular systolic function with a calculated ejection fraction of 66%. Job ID: [id number] DocumentID: [id number] Dictated Date: 09/15/2017 15:18:02 Nurse Administrator Date: 09/15/2017 20:15:29 Dictated By: LEAH KOLB MD, MA, FACP, FACC, [facility]
== END ==
LOC: CARD 07:29
PROVIDERS: ATTEND Internal Medicine Cardiovascular Disease
DX: I25.10 Atherosclerotic heart disease of native coronary artery without angina pectoris (principal); I65.23 Occlusion and stenosis of bilateral carotid arteries; I10 Essential (primary) hypertension; I73.89 Other specified peripheral vascular diseases; R06.02 Shortness of breath; E66.8 Other obesity; M79.89 Other specified soft tissue disorders
CPT/HCPCS: 78452; 93017

== ENCOUNTER → 2017-09-17 | Outpatient (CLI) | payer MEDICARE ==
[~2017-09-17] MED LIST changes: -CATHETER FLUSH 10 ML SYR IV PRN; -REGADENOSON 0.4 MG/5 ML SYR (LEXISCAN) IV ONE
== END ==
LOC: CARD 09:14
PROVIDERS: ATTEND Internal Medicine Cardiovascular Disease
DX: I25.10 Atherosclerotic heart disease of native coronary artery without angina pectoris (principal); I65.23 Occlusion and stenosis of bilateral carotid arteries; I10 Essential (primary) hypertension; I73.89 Other specified peripheral vascular diseases; R06.02 Shortness of breath; E66.8 Other obesity; M79.89 Other specified soft tissue disorders
CPT/HCPCS: 93306

== ENCOUNTER 2018-02-25 13:20 | Outpatient (CLI) | payer MEDICARE ==
[~2018-02-25] VITALS: Ht 167.6 cm; Wt 92.5 kg
[2018-02-25 13:27] VITALS: BP 155/70
[2018-02-25] MEDS ORDERED: SIMV40TA4 PO (13:59)
[2018-02-25] MEDS ORDERED: FURO40TA4 PO (13:59)
[2018-02-25] MEDS ORDERED: MEGE20TA PO (13:59)
[2018-02-25] MEDS ORDERED: FINA5TAB6 PO (13:59)
[2018-02-25] MEDS ORDERED: POTA10TA10 PO (13:59)
[2018-02-25] MEDS ORDERED: TAMS0.4C2 PO (13:59)
[2018-02-25] MEDS ORDERED: CALC-823 PO (13:59)
[2018-02-25] MEDS ORDERED: UBID100C27 PO (14:57)
[2018-02-25] MEDS ORDERED: ZOLP5TAB7 PO (14:57)
== END 2018-02-25 13:55 | disposition home or self-care (01) ==
LOC: PREOP 13:20
PROVIDERS: ATTEND Orthopaedic Surgery
DX: Z01.818 Encounter for other preprocedural examination (principal); G56.01 Carpal tunnel syndrome, right upper limb
CPT/HCPCS: 87081

== ENCOUNTER 2018-03-03 06:45 | Day surgery (SDC) | payer MEDICARE ==
--- NOTE | 2018-02-25 06:49 | HISTORY AND PHYSICAL ---
DATE OF SERVICE: ADMISSION HISTORY AND PHYSICAL This is an outpatient surgery. Date of service will be 03/03/2018, for right carpal tunnel release. HISTORY OF PRESENT ILLNESS: The patient is an 87-year-old gentleman with complaints of right wrist pain, hand pain and paresthesias. He has tried splints and activity modifications without relief. He reports activity limitations. He reports that this is painful with repetitive activities. He reports night pain as well. Due to functional impairment and failure to improve with conservative measures, the patient elected to proceed with surgical intervention. REVIEW OF SYSTEMS: No chest pain or shortness of breath. No dysuria. PAST MEDICAL HISTORY: Hypertension, prostate cancer, neck pain and vertigo. PAST SURGICAL HISTORY: Coronary stent placement, cataract excision, lumbar spine, bilateral knee replacements, and C-spine fusion. FAMILY HISTORY: Noncontributory. PRIMARY CARE PROVIDER: Dr. Peterson. MEDICATIONS: 1. Metoprolol. 2. Furosemide. 3. Clopidogrel. 4. Potassium. 5. Tamsulosin. 6. Finasteride. 7. Aspirin. 8. Calcium. 9. Vitamin D. 10. Zolpidem. 11. Meloxicam 12. Simvastatin. ALLERGIES: ULTRAM, MECLIZINE. SOCIAL HISTORY: The patient is a former smoker. Denies alcohol use. PHYSICAL EXAMINATION: GENERAL: Well-developed, well-nourished, no acute distress. HEENT: Normocephalic, atraumatic. Pupils are equal, round, and reactive. Oropharynx is clear. NECK: Supple, no lymphadenopathy. LUNGS: Clear to auscultation bilaterally. HEART: Regular rate and rhythm. ABDOMEN: Soft, nontender, and nondistended. EXTREMITIES: The right hand demonstrates positive Tinel's at the carpal tunnel with a positive Phalen maneuver. He has decreased sensation in the median distribution with mild thenar atrophy noted. IMPRESSION: Right carpal tunnel syndrome, chronic. PLAN: Right carpal tunnel release. The risks, benefits of operative ramifications and recovery were discussed at length with the patient. He understands and wishes to proceed. Job ID: [id number] DocumentID: [id number] Dictated Date: 02/23/2018 11:23:44 Aircraft Launch And Recovery Technician Date: 02/23/2018 12:08:06 Dictated By: ERICKA DIAZ MD
[~2018-03-03] VITALS: Ht 167.6 cm; Wt 75.7 kg
[2018-03-03 06:45] VITALS: BP 183/73
[~2018-03-03 06:45] MED LIST changes: +CALC-823 PO; +FINA5TAB6 PO; +MEGE20TA PO; +POTA10TA10 PO; +SIMV40TA4 PO; +TAMS0.4C2 PO; +UBID100C27 PO; +ZOLP5TAB7 PO
[2018-03-03] MEDS ORDERED: PROPOFOL INJECTION 50 ML IV ONE (07:09)
[2018-03-03] MEDS ORDERED: LACTATED RINGERS 1,000 ML IV PRN (07:14)
[2018-03-03] MEDS ORDERED: ceFAZolin INJECTION 1,000 MG in NS (IVPB) 50 ML IV ONE (07:15)
[2018-03-03] MEDS ORDERED: BUPIVACAINE 0.5% 30 ML (SENSORCAINE) VIAL ONE (07:22)
[2018-03-03] MEDS ORDERED: LIDOCAINE 1% INJ 20 ML 20 ML VIAL ONE (07:22)
--- NOTE | 2018-03-03 07:25 | Progress Note-Pre Operative ---
Pre-Operative Progress Note H&P Reviewed The H&P was reviewed, patient examined and no changes noted. Date Seen by Provider: Mar 03, 2018 Time Seen by Provider: 07:25 Date H&P Reviewed: Mar 03, 2018 Time H&P Reviewed: 07:25 Pre-Operative Diagnosis: right carpal tunnel syndrome ERICKA DIAZ MD Mar 03, 2018 07:25
--- NOTE | 2018-03-03 07:26 | Progress Note-Post Operative ---
Post-Operative Progess Note Surgeon (s)/Broach Operator (s) Surgeon ERICKA DIAZ MD Broach Operator: Luis Veliz Pre-Operative Diagnosis right carpal tunnel syndrome Post-Operative Diagnosis right carpal tunnel syndrome Procedure & Operative Findings Date of Procedure 03/03/18 Procedure Performed/Findings right carpal tunnel release Anesthesia Type MAC plus local Estimated Blood Loss Estimated blood loss (mL): minimal Specimens/Packing Specimens Removed none Packing: none ERICKA DIAZ MD Mar 03, 2018 07:26
[2018-03-03] MEDS ORDERED: HYDROcodone/APAP 5 MG/325 MG (LORTAB) TAB PO PRN (07:30)
[2018-03-03] MEDS ORDERED: fentaNYL INJECTION 100 MCG/2 ML AMP ONE (08:18)
[2018-03-03] MEDS ORDERED: fentaNYL INJECTION 100 MCG/2 ML AMP IVP PRN (09:00)
[2018-03-03 09:20] VITALS: BP 166/94
[2018-03-03] MEDS ORDERED: ACHD5005 PO (09:43)
[2018-03-03 09:50] VITALS: BP 136/64
[2018-03-03 10:20] VITALS: BP 124/74
--- NOTE | 2018-03-03 13:00 | Anesthesia-General Post-Op ---
General Patient Condition Mental Status/LOC: Same as Preop Cardiovascular: Satisfactory Nausea/Vomiting: Absent Respiratory: Satisfactory Pain: Controlled Complications: Absent Post Op Complications Complications None Follow Up Care/Instructions Patient Instructions None needed. Anesthesia/Patient Condition Patient Condition Patient is doing well, no complaints, stable vital signs, no apparent adverse anesthesia problems. No complications reported per nursing. HENRY REA CRNA Mar 03, 2018 13:00
--- NOTE | 2018-03-03 15:50 | OPERATIVE REPORT ---
DATE OF SERVICE: 03/03/2018 PREOPERATIVE DIAGNOSIS: Right carpal tunnel syndrome. POSTOPERATIVE DIAGNOSIS: Right carpal tunnel syndrome. PROCEDURE PERFORMED: Open right carpal tunnel release. SURGEON: Car Diaz MD MAINTAINER SE[employer]ER [employer] WATERWORKS: ADAMS Hussein, who assisted throughout the procedure and closed the incision. ANESTHESIA: Monitored anesthesia care plus local by Vinod Wise CRNA. TOURNIQUET TIME: 5 minutes at 250 mmHg. ESTIMATED BLOOD LOSS: Minimal. DRAINS: None. COMPLICATIONS: None. POSTOP PLAN: Routine protocol. The patient was transported to the recovery room awake and in stable condition. STATEMENT OF MEDICAL NECESSITY: This patient is an 87-year-old right hand dominant gentleman with complaints of right hand pain and paresthesias. He had a positive Tinel's at the carpal tunnel with decreased sensation in median distribution. He complained of functional impairment. Because of this, the patient elected to proceed with surgical intervention. DESCRIPTION OF PROCEDURE: After risks and benefits of procedure were discussed and questions were answered, an informed consent was signed and placed on the chart. The operative site was confirmed in the preoperative holding area initialed by the surgeon. The patient was transported to the operating room and after adequate levels of monitored anesthesia care obtained, a timeout was called confirming the operative site. The right upper extremity was prepped and draped in the usual sterile fashion after infiltrating the incision site under sterile conditions with a combination of plain lidocaine and plain Marcaine. After prepping and draping with the arm elevated, the tourniquet was inflated to 250 mmHg. A standard incision was made in line with the radial border of the ring finger over the transverse carpal ligament. The underlying soft tissues were sharply dissected. The transverse carpal ligament was identified and sharply incised by pushing through with a scalpel blade. The median nerve was identified and carefully protected throughout the procedure and intact at the conclusion of the procedure. Distally, this was confirmed, fully released with a freer. Proximally, the transverse carpal ligament was spread above and below with dissection scissors while carefully protecting the median nerve. The proximal aspect of the transverse carpal ligament was opened with a slightly open scissor edges. This was confirmed and fully freed with a freer. The tourniquet was deflated for a total tourniquet time of 5 minutes. Pressure was used for hemostasis. The wound was copiously irrigated and closed with 4-0 nylon in a running alternating horizontal mattress fashion. A soft dressing and brace were applied and the patient was transported to the recovery room awake and in stable condition. Job ID: [id number] DocumentID: [id number] Dictated Date: 03/03/2018 08:48:05 Chief Design Branch Date: 03/03/2018 15:49:37 Dictated By: CAR DIAZ MD
== END 2018-03-03 10:40 | disposition home or self-care (01) ==
LOC: SDC 06:45
PROVIDERS: ATTEND Orthopaedic Surgery
DX: G56.01 Carpal tunnel syndrome, right upper limb (principal); I10 Essential (primary) hypertension; I25.10 Atherosclerotic heart disease of native coronary artery without angina pectoris; Z95.5 Presence of coronary angioplasty implant and graft; Z87.891 Personal history of nicotine dependence; Z96.653 Presence of artificial knee joint, bilateral; Z79.899 Other long term (current) drug therapy; Z79.82 Long term (current) use of aspirin

== ENCOUNTER 2018-04-16 18:11 | Emergency (ER) | payer MEDICARE ==
[~2018-04-16] VITALS: Ht 167.6 cm; Wt 89.8 kg
[~2018-04-16 18:11] MED LIST changes: +ACHD5005 PO; -UBID100C27 PO; +UBID100C7 PO
--- NOTE | 2018-04-16 19:05 | ED EENT ---
History of Present Illness General Chief Complaint: Facial Problems Stated Complaint: LEFT SIDE FACE PAIN Nursing Triage Note: PT PRESENTS TO ER WITH COMPLAINT OF LEFT SIDE FACIAL PAIN. PT STATES THE PAIN STARTED WITHIN THE LAST FEW DAYS. PT STATES THAT HE FELL TWO WEEKS AGO AND HIT HIS HEAD AND HEARD A "CRUNCH". Source: patient History of Present Illness Date Seen by Provider: Apr 16, 2018 Time Seen by Provider: 18:45 Initial Comments PT ARRIVES VIA POV FROM HOME C/O LEFT JAW SORENESS SINCE WAKING YESTERDAY MORNING NO PAIN TO OPEN MOUTH, OR TALK OR CHEW STATES FOR YEARS, SOMETIMES HIS LEFT JAW "LOCKS" AND HE HAS TO "KNOCK IT BACK IN PLACE"--HAS NOT HAD THAT PROBLEM FOR 6-7 MONTHS, AND IS NOT OCCURRING NOW PT STATES HE DID FALL 2 WEEKS AGO AND HIT HIS LEFT FOREHEAD AREA, GOT A BLACK EYE, AND "THINKS HE GOT A CONCUSSION"--BUT DID NOT SEEK CARE. STATES HE "HEARD SOMETHING CRUNCH INSIDE MY HEAD" WHEN HE FELL. C/O PAIN TO LEFT UPPER AND LOWER MOLAR TEETH ALSO STATES ON Thursday04/14/18, HE WAS AT EYE DR AND HAD TO HOLD HIS HEAD/ CHIN IN PLACE IN A DEVICE FOR ALMOST AN HOUR--CAN'T SEE OUT OF HIS LEFT EYE--IS ONGOING PROBLEM--STATES A NERVE IN HIS EYE. STATES IT FEELS LIKE A SORE MUSCLE PT IS ON PLAVIX --HAS HAD 4 STENTS HAD CARDIAC CATH A WEEK AGO FOR CHEST PAIN WITH EXERTION FOR SEVERAL MONTHS, GOES AWAY WITH REST--PT STATES EVERYTHING CHECKED OUT FINE, AND HAS NOT HAD CHEST PAIN SINCE THEN. ON REVIEW OF OLD CHART, WAS ACTUALLY DONE -NOT A WEEK AGO. WAS DONE BY DR. BUNDY. PT HAD RIGHT CARPAL TUNNEL SURGERY 03/03/18 Allergies and Home Medications Allergies Coded Allergies: tramadol (Unverified Allergy, Intermediate, 09/02/16) meclizine (Unverified Allergy, Mild, 09/02/16) Home Medications Aspirin 81 Mg Tablet., 81 MG PO DAILY, (Reported) Calcium Carbonate 500 Mg Tablet, 1,200 MG PO DAILY, (Reported) Cefdinir 300 Mg Capsule, 300 MG PO BID Prescribed by: TENISHA HERNÁNDEZ on 04/16/181945 Clopidogrel Bisulfate 75 Mg Tablet, 75 MG PO 1700, (Reported) Cyclobenzaprine HCl 5 Mg Tablet, 5-10 MG PO Q8H Prescribed by: TENISHA HERNÁNDEZ on 04/16/181945 Finasteride 5 Mg Tablet, 5 MG PO 1700, (Reported) Furosemide 40 Mg Tablet, 40 MG PO DAILY, (Reported) Hydrocodone Bit/Acetaminophen 1 Tab Tab, 1 EACH PO Q4H Prescribed by: TENISHA HERNÁNDEZ on 04/16/181945 Megestrol Acetate 20 Mg Tablet, 20 MG PO BID, (Reported) Meloxicam 7.5 Mg Tablet, 7.5 MG PO DAILY, (Reported) Metoprolol Succinate 100 Mg Tab.er.24h, 100 MG PO DAILY, (Reported) Potassium Chloride 10 Meq Tablet.er, 10 MEQ PO DAILY, (Reported) Simvastatin 40 Mg Tablet, 40 MG PO HS, (Reported) Tamsulosin HCl 0.4 Mg Cap.er.24h, 0.4 MG PO 1730, (Reported) Ubidecarenone 100 Mg Capsule, 100 MG PO 1700, (Reported) Zolpidem Tartrate 5 Mg Tablet, 2.5 MG PO 0200,2200 PRN for INSOMNIA, (Reported) TAKES 1/2 (5MG) TABLET Patient Home Medication List Home Medication List Reviewed: Yes Review of Systems Constitutional: no symptoms reported; No dizziness Eyes: See HPI Ears: No Symptoms Reported Nose: no symptoms reported Mouth: see HPI Throat: no symptoms reported Respiratory: no symptoms reported Cardiovascular: no symptoms reported Gastrointestinal: no symptoms reported Musculoskeletal: see HPI Neurological: No Symptoms Reported; Denies Headache, Denies Numbness, Denies Paresthesia, Denies Seizure, Denies Tingling, Denies Tremors, Denies Weakness Hematologic/Lymphatic: No Symptoms Reported Immunological/Allergic: no symptoms reported Past Vwnmopp-Fnvfcx-Kapiip Hx Patient Social History Alcohol Use: Denies Use Recreational Drug Use: No Smoking Status: Former Smoker Type Used: Pipe Former Smoker, Quit: Sep 02, 2014 Recent Foreign Travel: No Contact w/Someone Who Travel: No Recent Infectious Disease Expo: No Recent Hopitalizations: No Immunizations Up To Date Tetanus Booster (TDap): More than 5yrs Date of Pneumonia Vaccine: Sep 02, 2013 Date of Influenza Vaccine: Jun 28, 2017 Seasonal Allergies Seasonal Allergies: Yes Past Medical History Surgeries: Yes (CARDIAC CATHS--STENTS X 4; RIGHT CARPAL TUNNEL) Cardiac, Coronary Stent, Joint Replacement, Orthopedic Respiratory: No Cardiac: Yes Chronic Edema/Swelling, Coronary Artery Disease, Hypertension Neurological: No Reproductive Disorders: No HIV/AIDS: No Genitourinary: Yes Benign Prostatic Hyperpl Gastrointestinal: No Musculoskeletal: Yes (CARPAL TUNNEL SYNDROME) Degenerate Disk Disease, Arthritis, Chronic Back Pain Endocrine: No HEENT: Yes Cataract Loss of Vision: Bilateral Hearing Impairment: Bilateral Hearing Aide Cancer: Yes Prostate Did You Recieve Any Treatments: Yes Psychosocial: No Integumentary: Yes (HX SKIN CANCER, DRY SKIN) Blood Disorders: No Adverse Reaction/Blood Tranf: No Physical Exam Vital Signs Vital Signs - First Documented 04/16/18 18:20 Temp 98.0 Pulse 91 Resp 20 B/P (MAP) 193/94 (127) Pulse Ox 98 O2 Delivery Room Air Height, Weight, BMI Height: 5'6.00" Weight: 198lbs. 0.0oz. 89.249679xd; 33.3 BMI Method:Stated General Appearance: WD/WN, no apparent distress Eyes: left eye other (RESIDUAL ECCHYMOSIS TO LEFT PERIORBITAL AREA. ); bilateral eye EOMI Ears: bilateral ear auricle normal, bilateral ear canal normal, bilateral ear TM normal, bilateral ear other (BILATERAL HEARING AIDS) Nose: normal inspection Mouth/Throat: No dental tenderness, No excessive drooling, No foreign body, No mandibular swelling, No maxillary swelling, No tongue swollen, No tonsillar exudate, No tonsillar swelling, No trismus, No uvula swelling, No voice changes ; other (TENDERNESS TO LEFT TMJ AREA, LEFT MANDIBLE AND LEFT MAXILLA. NO SWELLING TO FACE. NO CREPITANCE. EXTENSIVE DENTAL WORK, MULTIPLE MISSING TEETH , UPPER BRIDGE. MULTIPLE DENTAL CARIES. HAS TENDER / SWOLLEN NODULE TO LEFT SUB AURICULAR AREA--IS SITE OF PAIN , IS A SMALLER AREA JUST MEDIAL TO THAT IN SUBMANDIBULAR AREA) Neck: full range of motion, supple, lymphadenopathy (L) (SUBAURICULAR AND SUBMANDIBULAR AREAS) Cardiovascular: regular rate, rhythm, systolic murmur (10/03) Respiratory: normal breath sounds Neurologic/Psychiatric: museum docent II-XII nml as tested, no motor/sensory deficits, alert, normal mood/affect, oriented x 3 Skin: normal color, warm/dry, ecchymosis (RESOLVING LEFT PERIORBITAL ECCHYMOSIS ) Progress/Results/Core Measures Results/Orders My Orders Orders - TENISHA HERNÁNDEZ DO Ct Head/Maxillofacial Wo (04/16/18 18:58) Vital Signs/I&O 04/16/18 18:20 Temp 98.0 Pulse 91 Resp 20 B/P (MAP) 193/94 (127) Pulse Ox 98 O2 Delivery Room Air Blood Pressure Mean: [address] HEAD/MAXILLOFACIALS--NO ACUTE PROCESS, CHRONIC MICROVASCULAR ISCHEMIC CHANGES , DENTAL CARIES--PER RADIOLOGIST REPORT @ 1936 Reviewed: Reviewed by Me Departure Impression Primary Impression: LEFT JAW PAIN/MUSCLE STRAIN Additional Impressions: Dental caries Submandibular lymphadenopathy Submandibular lymphadenitis Disposition: HOME, SELF-CARE Condition: Stable Departure-Patient Inst. Referrals: GIANFRANCO ALEXANDER MD (PCP/Family) Primary Care Physician Patient Instructions: Dental Pain (DC), LYMPH NODE INFECTION, LYMPH NODE SWELLING, Minor Head Injury (DC), Muscle Strain (DC), Temporomandibular Joint ( TMJ) Disorders (DC) Add. Discharge Instructions: ALTERNATE ICE AND HEAT TO AREA AT 20 MINUTE INTERVALS SOFT FOODS--AVOID ALOT OF CHEWING FOLLOW UP WITH DR. ALEXANDER IN 4-5 DAYS FOR FURTHER CARE All discharge instructions reviewed with patient and/or family. Voiced understanding. Scripts Hydrocodone Bit/Acetaminophen (Hydrocodone/Acetaminophen 5/325mg Tablet) 1 Tab Tab 1 EACH PO Q4H, #20 TAB Prov: TENISHA HERNÁNDEZ DO 04/16/18 Cyclobenzaprine HCl (Cyclobenzaprine HCl) 5 Mg Tablet 5-10 MG PO Q8H for Muscle Cramps, #15 TAB Prov: TENISHA HERNÁNDEZ DO 04/16/18 Cefdinir (Cefdinir) 300 Mg Capsule 300 MG PO BID for FOR INFECTION, #20 CAP Prov: TENISHA HERNÁNDEZ DO 04/16/18 TENISHA HERNÁNDEZ DO Apr 16, 2018 19:05
--- NOTE | 2018-04-16 19:27 | Diagnostic Imaging Report ---
PROCEDURE: CT head and maxillofacial without contrast. TECHNIQUE: Multiple contiguous axial images were obtained through the head and facial bones without the use of intravenous contrast. INDICATION: Facial pain and headache COMPARISON: None CT head: There is mild age-related cerebral volume loss and chronic small vessel ischemic changes. There is no midline shift or mass effect. There is no hemorrhage or evidence of acute ischemia. The bony calvarium, visualized paranasal sinuses and mastoids are normal. IMPRESSION: No acute intracranial abnormalities. CT face: The paranasal sinuses are clear throughout. There is no air-fluid level or mucosal thickening. The temporomandibular joints are well seated. Mastoids are clear. The orbits are symmetric. No soft tissue inflammatory process is identified. There is no fluid collection. Multiple dental caries are present. IMPRESSION: Dental caries. No sinus disease, abscess or inflammation identified. Dictated by: Dictated on workstation # [id number]
[2018-04-16] MEDS ORDERED: CYCL5TAB PO (19:46)
[2018-04-16] MEDS ORDERED: CEFD300C3 PO (19:46)
[2018-04-16] MEDS ORDERED: ACHD5005 PO (19:46)
[2018-04-16 19:54] VITALS: BP 173/80
== END 2018-04-16 19:54 | disposition home or self-care (01) ==
LOC: EDUNIT# 18:11 → ER 18:12
DX: S03.42XA Sprain of jaw, left side, initial encounter (principal); K02.9 Dental caries, unspecified; R59.0 Localized enlarged lymph nodes; I25.10 Atherosclerotic heart disease of native coronary artery without angina pectoris; I10 Essential (primary) hypertension; Z85.828 Personal history of other malignant neoplasm of skin; Z88.6 Allergy status to analgesic agent; Z85.46 Personal history of malignant neoplasm of prostate; Z88.8 Allergy status to other drugs, medicaments and biological substances; Z79.82 Long term (current) use of aspirin; Z79.02 Long term (current) use of antithrombotics/antiplatelets; Z87.891 Personal history of nicotine dependence; Z95.5 Presence of coronary angioplasty implant and graft; W01.198A Fall on same level from slipping, tripping and stumbling with subsequent striking against other object, initial encounter
CPT/HCPCS: 70450; 70486

== ENCOUNTER → 2018-07-26 | Outpatient (CLI) | payer MEDICARE ==
[~2018-07-26] MED LIST changes: -AMLO10TA2 PO; +AMLO10TA6 PO; +CATHETER FLUSH 10 ML SYR IV PRN; +CEFD300C3 PO; +CYCL5TAB PO
[2018-07-26 12:10] LABS: BUN/CREATININE RATIO 15; CALCIUM 9.2 MG/DL (8.5-10.1); CARBON DIOXIDE 27 MMOL/L (21-32); CHLORIDE 106 MMOL/L (98-107); CREATININE SERUM 1.02 MG/DL (0.60-1.30); GFR ESTIMATED > 60; GLUCOSE 119 MG/DL (70-105); POTASSIUM 3.8 MMOL/L (3.6-5.0); SODIUM 142 MMOL/L (135-145)
--- NOTE | 2018-07-26 13:48 | Diagnostic Imaging Report ---
PROCEDURE: CT abdomen and pelvis with and without contrast. TECHNIQUE: Precontrast acquisitions were acquired through the abdomen and pelvis. Multiple contiguous axial images were obtained through the abdomen and pelvis after the administration of intravenous contrast. INDICATION: Prostate carcinoma. COMPARISON: Comparison is made with prior CT from 05/21/2017. FINDINGS: There appears to be some linear scarring or atelectasis both lower lobes. Calcified granulomas in the lung bases are again seen. Liver again contains numerous low-density masses, suggestive of cysts. These appear similar to prior exam. The gallbladder does contain a large stone. No biliary ductal dilatation is seen. The pancreas and spleen are unremarkable. No adrenal mass is detected. There appears to be a cyst in lower pole of the right kidney which has increased in size since prior CT, now measuring 2.1 cm compared with 1.2 cm. Left kidney is unremarkable. Aorta is not aneurysmal. No definite central retroperitoneal or mesenteric lymphadenopathy is identified. The small and large bowel loops are normal caliber. Appendix is unremarkable. There is no ascites. Previously noted lymph node in the right pelvis in the obturator location is no longer visualized. The iliac regions are unremarkable. No inguinal lymphadenopathy is seen. The midline lymph node in the presacral location is barely visible on today's study. The bladder and prostate are unremarkable. There is diverticulosis of the sigmoid colon but no evidence of acute diverticulitis. Bony structures are nonacute. IMPRESSION: 1. Cholelithiasis. 2. Hepatic cyst, stable. 3. Slight increase in size of right renal cyst since prior CT from 05/21/2017. 4. Improved pelvic lymphadenopathy when compared with prior exam. The right obturator and presacral lymphadenopathy has resolved. No new abnormality is seen. 5. Uncomplicated diverticulosis. Dictated by: Dictated on workstation # [id number] CORRECTED UPDATED PROVIDER: ISAK VALLADARES MD [facility]
--- NOTE | 2018-07-26 14:45 | Diagnostic Imaging Report ---
INDICATION: Prostate carcinoma. TECHNIQUE: The patient was administered 26.7 mCi of technetium 99m MDP intravenously and whole-body imaging was performed after a 3 hour delay. FINDINGS: There is normal uptake of activity by the axial and appendicular skeleton. There is uptake by both kidneys with excretion into the urinary bladder. No abnormal foci of tracer accumulation is seen to suggest osseous metastatic disease. IMPRESSION: No scintigraphic evidence of osseous metastatic disease. Dictated by: Dictated on workstation # [id number] CORRECTED UPDATED PROVIDER: ISAK VALLADARES MD [facility]
== END ==
LOC: CARD 10:54
PROVIDERS: ATTEND Urology
DX: C61 Malignant neoplasm of prostate (principal)
CPT/HCPCS: 36415; 74178; 78306; 80048

== ENCOUNTER → 2019-05-03 | Outpatient (CLI) | payer MEDICARE ==
[~2019-05-03] MED LIST changes: -AMLO10TA6 PO; +AMLO10TA7 PO
--- NOTE | 2019-05-03 13:22 | Diagnostic Imaging Report ---
PROCEDURE: CT abdomen and pelvis without contrast. TECHNIQUE: Multiple contiguous axial images were obtained through the abdomen and pelvis without the use of intravenous contrast. Auto Exposure Controls were utilized during the CT exam to meet ALARA standards for radiation dose reduction. INDICATION: Prostate carcinoma. COMPARISON: Comparison is made with prior CT from 07/26/2018. FINDINGS: Calcified granulomas in the left lower lobe are seen. There is some linear scarring or atelectasis in the right lower lobe. Calcified lymph nodes in the right hilum are seen. There is marked coronary arterial calcifications. Hepatic low densities appear to be similar to prior exam and suggestive of cysts. There are stones within the gallbladder. There is no biliary duct dilatation. Pancreas and spleen are unremarkable. No adrenal mass is detected. Right renal cyst is stable. There are no calculi or hydronephrosis. Aorta is nonaneurysmal. No central retroperitoneal or mesenteric lymphadenopathy is seen. Small and large bowel loops are normal in caliber. Diverticulosis of the sigmoid is again noted but no evidence of acute diverticulitis. Bladder is unremarkable. Prostate does appear to be enlarged but stable. No inguinal or iliac lymphadenopathy is seen. No obturator or presacral adenopathy is detected. There is no free fluid in the abdomen. No osteoblastic lesions are seen. IMPRESSION: Overall stable CT of the abdomen and pelvis study when compared with the prior exam from 07/26/2018. Cholelithiasis with hepatic and renal cysts appear stable. No abdominal or pelvic lymphadenopathy is detected. Dictated by: Dictated on workstation # [id number]
--- NOTE | 2019-05-03 15:12 | Diagnostic Imaging Report ---
INDICATION: Prostate carcinoma. TECHNIQUE: The patient was administered 26.8 mCi of technetium 99m MDP intravenously and whole-body imaging was performed after a 3 hour delay. COMPARISON: 07/26/2018. FINDINGS: Continued normal distribution of radiotracer throughout the axial and appendicular skeleton is seen. There appear to be post surgical changes in the bilateral knees. There is uptake of activity by the kidneys with excretion into the urinary bladder. No abnormal focus of tracer accumulation is seen to suggest osseous metastatic disease. IMPRESSION: No scintigraphic evidence of osseous metastatic disease. Dictated by: Dictated on workstation # [id number]
== END ==
LOC: CARD 10:52
PROVIDERS: ATTEND Urology
DX: K80.20 Calculus of gallbladder without cholecystitis without obstruction (principal); C61 Malignant neoplasm of prostate; K76.89 Other specified diseases of liver; N28.1 Cyst of kidney, acquired
CPT/HCPCS: 74176; 78306

== ENCOUNTER 2019-10-04 12:30 | Outpatient (RCR) | payer MEDICARE ==
[~2019-10-04 12:30] MED LIST changes: -CATHETER FLUSH 10 ML SYR IV PRN; -MEGE20TA PO; +MEGE20TA3 PO; -METO-395 PO; +SIMV40TA25 PO; -SIMV40TA4 PO
--- NOTE | 2019-10-04 12:52 | Diagnostic Imaging Report ---
PROCEDURE: CT head without contrast. TECHNIQUE: Multiple contiguous axial images were obtained through the brain without the use of intravenous contrast. Auto Exposure Controls were utilized during the CT exam to meet ALARA standards for radiation dose reduction. INDICATION: Facial numbness. COMPARISON: Correlation is made with prior head CT from 04/16/2018. FINDINGS: Ventricles and sulci are consistent with the patient's age. Moderate periventricular hypodensity is noted consistent with senescent change. No sulcal effacement or midline shift is detected. No acute intra-axial or extra-axial hemorrhage is detected. Cisterns are patent. The visualized paranasal sinuses are clear. IMPRESSION: Senescent changes. No acute intracranial process is detected. Dictated by: Dictated on workstation # [id number]
== END 2020-01-02 | disposition home or self-care (01) ==
LOC: CARD 12:30
PROVIDERS: ATTEND Physician Assistant
DX: I25.10 Atherosclerotic heart disease of native coronary artery without angina pectoris (principal); I65.23 Occlusion and stenosis of bilateral carotid arteries; I10 Essential (primary) hypertension; I44.7 Left bundle-branch block, unspecified; R20.0 Anesthesia of skin; Z87.898 Personal history of other specified conditions
CPT/HCPCS: 70450

== ENCOUNTER → 2019-11-09 | Outpatient (CLI) | payer MEDICARE ==
[~2019-11-09] VITALS: Ht 165 cm; Wt 97.0 kg
[~2019-11-09] MED LIST changes: +CATHETER FLUSH 10 ML SYR IV PRN; +MEGE20TA PO; -MEGE20TA3 PO; +REGADENOSON 0.4 MG/5 ML SYR (LEXISCAN) IV ONE
[2019-11-09 13:21] VITALS: BP 137/68
--- NOTE | 2019-11-09 19:18 | STRESS TEST ---
DATE OF SERVICE: 11/09/2019 LEXISCAN MYOVIEW STRESS TEST REPORT REFERRING PHYSICIAN: Cecelia Dillard MD Baseline heart rate is 62. Baseline blood pressure 137/68. Baseline EKG sinus rhythm with left bundle branch block. In summary, the patient was injected with 9.99 mCi of technetium-99 Myoview and the resting images were obtained. Then, the patient received 0.4 mg of Lexiscan followed by 31.1 mCi of technetium-99 Myoview. Throughout the test, there were no EKG changes. The resting and stress images were reviewed and compared in the short axis, horizontal long axis, and vertical long axis views. Review of the images showed extracardiac attenuation affecting the quality of the images. There is mild decreased uptake at the apex with no significant reversibility. SSS is 5, SDS 3, TID value 1.06. On the gated images, the left ventricle appeared to be normal size with normal contractility. Calculated ejection fraction 70%. CONCLUSION: 1. The patient tolerated Lexiscan well. 2. Extracardiac attenuation affecting the quality of the images with mild decreased uptake at the apex and inferoapical segment with no significant ischemia or infarction seen. 3. Normal left ventricular size with normal contractility. Calculated ejection fraction 70%. Job ID: [id number] DocumentID: [id number] Dictated Date: 11/09/2019 15:13:47 Tube Turner Date: 11/09/2019 19:17:34 Dictated By: STACIE VICTORIA MD
== END ==
LOC: CARD 12:21
PROVIDERS: ATTEND Physician Assistant
DX: I25.10 Atherosclerotic heart disease of native coronary artery without angina pectoris (principal); R20.0 Anesthesia of skin; R06.09 Other forms of dyspnea; I10 Essential (primary) hypertension; I73.9 Peripheral vascular disease, unspecified; Z72.0 Tobacco use
CPT/HCPCS: 78452; 93017

== ENCOUNTER → 2019-11-22 | Outpatient (CLI) | payer MEDICARE ==
[~2019-11-22] MED LIST changes: -CATHETER FLUSH 10 ML SYR IV PRN; -MEGE20TA PO; +MEGE20TA3 PO; -REGADENOSON 0.4 MG/5 ML SYR (LEXISCAN) IV ONE
== END ==
LOC: CARD 12:42
PROVIDERS: ATTEND Physician Assistant
DX: I25.10 Atherosclerotic heart disease of native coronary artery without angina pectoris (principal); R20.0 Anesthesia of skin; R06.09 Other forms of dyspnea; I10 Essential (primary) hypertension; I73.9 Peripheral vascular disease, unspecified; Z72.0 Tobacco use; I08.2 Rheumatic disorders of both aortic and tricuspid valves
CPT/HCPCS: 93306

== ENCOUNTER → 2020-03-19 | Outpatient (CLI) | payer MEDICARE ==
[~2020-03-19] MED LIST changes: +LOSA50TA63 PO; +MELO15TA39 PO; +POTA10TA36 PO; +TMSL.4C PO; +VITA1CAP PO
== END ==
LOC: LABNPT 06:50
PROVIDERS: ATTEND Internal Medicine Cardiovascular Disease
DX: Z01.818 Encounter for other preprocedural examination (principal); Z11.59 Encounter for screening for other viral diseases
CPT/HCPCS: 87635

== ENCOUNTER 2020-03-21 10:48 | Day surgery (SDC) | payer MEDICARE ==
[~2020-03-21] VITALS: Ht 166.4 cm; Wt 94.8 kg
[2020-03-21] VITALS (10 sets, daily range): BP systolic 132–182; BP diastolic 53–82
[~2020-03-21 10:48] MED LIST changes: -LOSA50TA63 PO; -MELO15TA39 PO; -POTA10TA36 PO; -TMSL.4C PO; -VITA1CAP PO
[2020-03-21] MEDS ORDERED: LIDOCAINE 1% INJ 20 ML 20 ML VIAL ONE (10:57)
[2020-03-21] MEDS ORDERED: HEParin (CATH LAB) 1,000 ML IV ONE (10:57)
[2020-03-21] MEDS ORDERED: NS IV 1000 ML 1,000 ML ONE (10:57)
[2020-03-21] MEDS ORDERED: NS IV 1000 ML 1,000 ML IV SCH ×2 (11:00→13:41)
[2020-03-21 11:22] LABS: HEMOGLOBIN 11.9 G/DL (13.3-17.7); MEAN PLATELET VOLUME 10.1 FL (7.4-10.4); RED CELL DISTRIBUTION WIDTH 12.8 % (10.0-14.5); WHITE BLOOD COUNT 6.2 10^3/uL (4.3-11.0)
[2020-03-21 11:32] LABS: PROTHROMBIN TIME PATIENT 13.5 SEC (12.2-14.7)
--- NOTE | 2020-03-21 11:34 | Diagnostic Imaging Report ---
INDICATION: Pre-heart catheterization. Time of exam 11:24 AM Correlation is made with prior chest from 08/20/2017. Heart size is stable. Right hemidiaphragm is mildly elevated, chronic. No infiltrate or failure is detected. There is no effusion or pneumothorax. IMPRESSION: No acute cardiopulmonary process is detected. Dictated by: Dictated on workstation # [id number]
--- OUTSIDE RECORDS SUMMARY | 2020-03-21 11:36 | XMS REPORT | Continuity of Care Document ---
Author Author [facility] Address Unknown Phone Unavailable Care Team Providers Care Director Staffing Name Role Phone [facility] Unavailable Unavailable Problems Combined list of all problems from all [facility] of Defense and [facility] facilities. It does not include entries that were removed or entered in error. 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 Some immunizations on record at [facility] may not be included. Immunization Series Date Given Administered By Site Reaction Lot Number CVX Code Drug Transformer Inspector Status Comments Source PNEUMOCOCCAL, UNSPECIFIED FORMULATION 09/08/2003 109 [facility] 06/28/2003 88 completed [facility], [facility] 15 INFLUENZA, WHOLE 06/28/2003 16 completed V A [facility], [facility]N 15 PNEUMOCOCCAL, UNSPECIFIED FORMULATION 07/29/2000 109 completed [facility], [facility] 15 Results No Data Provided for This Section Vital Signs No Data Provided for This Section Encounters Combined list of encounters at Department of Defense and/or [facility] ([facility] ) for the last 15 months. Not all VA inpatient encounters are included. The incl uded entries comply with the patient's data sharing authorizations. Location Location Details Encounter Type Encounter Number Reason For Visit Attending Provider ADM Date DC Date Status Disposition Source Outpatient Encounter [id number] _MAPID :endReason1 03/05/2020 GERALD KEBEDE [facility] Procedures No Data Provided for This Section Social History No Data Provided for This Section Assessment and Plan No Data Provided for This Section Plan of Care No Data Provided for This Section Family History No Data Provided for This Section Advance Directives No Data Provided for This Section Functional Status No Data Provided for This Section
--- OUTSIDE RECORDS SUMMARY | 2020-03-21 11:36 | XMS REPORT | Encounter Summary ---
Author Author Department of [facility] TIBURCIO lorenz Organization Department of [facility] Address [address] [place] [address] Phone Unavailable Support Name Relationship Address Phone OLESYAZaireDEE Next Of Kin [address] [place] [address] Zaire DACOSTA ECON [address] [place] [address] Insurance Providers: All historical and current Section Date Range: From patient's date of to the date document was create d. This section includes the names of all active insurance providers for the [place] Insurance Provider Type of Coverage Plan Name Start of Policy [place] End of Policy Coverage Group Number Member ID Insurance Provider's Telephone N umber Policy Kelley's Name Patient's Relationship to Policy Kelley JAM[place]PP[place] MEDICARE SUPPLEMENT Apr 28, 1995 [id number] [phone] TIBURCIO DACOSTA PATIENT [employer] MEDICARE SUPPLE[place]AL MEDICARE SUPPLEMENT Apr 28, 1995 [id number] [phone] TIBURCIO DACOSTA PATIENT [place] MED[place] SUPPLE[place]AL MEDICARE SUPPLEMENT Apr 28, 1995 [id number] [phone] TIBURCIO DACOSTA PATIENT MEDICARE (WNR) MEDICARE (M) PART A Apr 28, 1995 PART A [id number] [phone] TIBURCIO DACOSTA PATIENT MEDICARE (WNR) MEDICARE (M) PART B Apr 28, 1995 PART B [id number] [phone] TIBURCIO DACOSTA PATIENT Selected Encounter This section includes the information on record at [place] for the Encounter. Date/Time Encounter Type Encounter Description Reason Provider Source Mar 05, 2020 02:08 PM Outpatient Encounter ADMIN PAT ACTIVTIES (MEMENO NCT) GERALD KEBEDE [facility] IHE Encounter Template Text not used by [place] Assessments - Encounter Diagnoses No Data Provided for This Section Plan of Treatment: Future Appointments (+ 6 months) and Future Tests (+/- 45 day s) No Data Provided for This Section Surgical Procedures: All associated to the encounter No Data Provided for This Section Lab Results: +/- 30 days of the encounter No Data Provided for This Section Vital Signs: All taken on the encounter date No Data Provided for This Section Immunizations: All administered on the encounter date No Data Provided for This Section Social History: Smoking Status (Most current) and Tobacco Use (All prior to enco unter date) No Data Provided for This Section Advance Directives: All historical and current No Data Provided for This Section Allergies and Adverse Reactions (ADRs): All historical and current Section Date Range: From patient's date of to the date document was create d. This section includes Allergies and Adverse Reactions (ADR s) [facility] with [facility] for [facility]. The data comes from a ll [place] treatment facilities. It does not list Allergies/ADRs that were removed or entered in error. Some allergies/ADRs may be reported in [facility] Immunization section. Allergen Event Date Event Type Reaction(s) Severity Source No Known Allergies [facility], [facility] 15 Medications: [facility] dispensed (-15 months) and Non-[facility] Documented (Obtained Outside [facility] A) No Data Provided for This Section Problems (Conditions): All historical and current Section Date Range: From patient's date of to the date document was create d. This section includes a list of Problems (Conditions) know n to [facility] for the patient. It includes both active and inacti ve problems (conditions). The data comes from all [place] treatment facilities. 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 Date/Time Encounter Note(s) Provider Source Mar 05, 2020 02:08 PM PRIMARY CARE MANAGEMENT ASSOCIATE N OTE: LOCAL TITLE: [place]-PACT SOCIAL WORK TRIAGE ASSESSMENT STANDARD TITLE: PRIMARY CARE MANAGEMENT ASSOCIATE NOTE DATE OF NOTE: MAR 05, 2020@14:08 ENTRY DATE: MAR 05, 2020@14:08:26 AUTHOR: JUANY PRESSLEY EXP COSIGNER: URGENCY: STATUS: COMPLETED This SW attempted to call [employer] to provide support during COVID-19 pandemic. SW called phone number on file, and the person who answered said that the [employer] was not available at this time but denied needs or concerns. TIME: 2 minutes /es/ JUANY PRESSLEY [place] Signed: 03/05/2020 14:10 JUANY PRESSLEY [facility]
--- OUTSIDE RECORDS SUMMARY | 2020-03-21 11:37 | XMS REPORT | Continuity of Care Document ---
Author Organization Unknown Address Unknown Phone Unavailable Allergies Active Description Code Type Severity Reaction Onset Reported/Identified Relationship to Patient Clinical Status Yes No Known Drug Allergies [id number] Drug Allergy Unknown N/A 11/16/2014 Yes milk [id number] Drug Allergy Moderate UPSET STOMACH 01/01/2016 Yes tramadol [id number] Drug Allergy Moderate N/A 09/02/2016 Yes meclizine [id number] Drug Allergy Mild N/A 09/02/2016 Medications There is no data. Problems Date Dx Coded Attending Type Code Diagnosis Diagnosed By 08/27/1404 GERALD JOHNSTON DO Ot Z47.1 AFTERCARE FOLLOWING JOINT REPLACEMENT GARCIA 08/27/1404 GERALD JOHNSTON DO Ot Z96.652 PRESENCE OF LEFT ARTIFICIAL KNEE JOINT 02/28/2010 Ot 724.2 02/28/2010 Ot V57.1 02/28/2010 Ot V58.49 08/25/2010 Ot V58.31 11/16/2014 Ot 719.42 SHARRI NT PAIN-UP/ARM 11/16/2014 Ot 729.5 PAIN IN LIMB 01/15/2015 Ot 723.0 01/15/2015 Ot 722.10 01/15/2015 Ot 433.30 01/15/2015 Ot 368.9 02/16/2015 PERLA RING MD Ot 723.4 03/14/2015 PERLA RING MD Ot 723.4 03/21/2015 TEE COLINDRES MD Ot 722. 4 03/21/2015 TEE COLINDRES MD Ot 722. 81 03/21/2015 TEE COLINDRES MD Ot V58. 69 03/21/2015 GREGOR ZULETA FACC, LAMAR MILLERP CCDS Ot 276.8 HYPOPOTASSEMIA 03/21/2015 GREGOR ZULETA FACC, LAMAR MILLERP CCDS Ot 305.1 TOBACCO USE DISORDER 03/21/2015 GREGOR ZULETA FACMarissa, LAMAR MILLERP CCDS Ot 414.01 CORONARY ATHEROSCLEROSIS OF [place] CORON 03/21/2015 GREGOR ZULETA [facility], LAMAR MIRZA CCDS Ot 414.4 CORONARY ATHEROSCLEROSIS DUE TO [place] 03/21/2015 GREGOR ZULETA [facility], LAMAR MIRZA CCDS Ot 786.59 CHEST PAIN NEC 03/21/2015 GREGOR ZULETA [facility], LAMAR [facility] CCDS Ot V58.69 OT MED,LT,CURRENT USE 03/23/2015 BERNADINE ZULETA, TEE Gross Ot 722. 4 03/23/2015 BERNADINE ZULETA, TEE Gross Ot 722. 81 03/23/2015 TEE COLINDRES MD Ot V58. 69 04/08/2015 KIRSTEN ZULETA, NICOLA Mazariegos Ot 707.13 ULCER OF ANKLE 04/25/2015 BAIMA, MANDEEP L CARPET MEASURER Ot 789.30 04/25/2015 BAIMA, MANDEEP L CARPET MEASURER Ot 922.2 04/25/2015 BAIMA, MANDEEP L CARPET MEASURER Ot E000.8 04/25/2015 BAIMA, MANDEEP L CARPET MEASURER Ot E928.9 05/02/2015 BAIMA, MANDEEP L CARPET MEASURER Ot 789.30 05/02/2015 BAIMA, MANDEEP L CARPET MEASURER Ot 922.2 05/02/2015 BAIMA, MANDEEP L CARPET MEASURER Ot E000.8 05/02/2015 BAIMA, MANDEEP L CARPET MEASURER Ot E928.9 02/21/2016 CATHERINE ZULETA, GIANFRANCO Vyas Ot R26.9 UNSPECIFIED ABNORMALITIES OF GAIT AND MO 03/31/2016 GERALD JOHNSTON DO Ot M17.12 UNILATERAL PRIMARY OSTEOARTHRITIS, LEFT 03/31/2016 GERALD JOHNSTON DO Ot Z01.812 ENCOUNTER FOR PREPROCEDURAL LABORATORY E 03/31/2016 GERALD JOHNSTON DO Ot Z11.2 ENCOUNTER FOR SCREENING FOR OTHER BACTER 04/17/2016 GERALD JOHNSTON DO Ot M17.12 UNILATERAL PRIMARY OSTEOARTHRITIS, LEFT 04/17/2016 GERALD JOHNSTON DO Ot Z01.812 ENCOUNTER FOR PREPROCEDURAL LABORATORY E 04/17/2016 GERALD JOHNSTON DO Ot Z11.2 ENCOUNTER FOR SCREENING FOR OTHER BACTER 04/17/2016 GERALD JOHNSTON DO Ot F17.290 NICOTINE DEPENDENCE, OTHER TOBACCO PRODU 04/17/2016 GERALD JOHNSTON DO Ot I 10 ESSENTIAL (PRIMARY) HYPERTENSION 04/17/2016 GERALD JOHNSTON DO Ot I25.10 ATHSCL HEART DISEASE OF [place] CORONARY 04/17/2016 GERALD JOHNSTON DO Ot M17.12 UNILATERAL PRIMARY OSTEOARTHRITIS, LEFT 04/17/2016 GERALD JOHNSTON DO Ot R41.0 DISORIENTATION, UNSPECIFIED 04/17/2016 GERALD JOHNSTON DO Ot T40.2X5A ADVERSE EFFECT OF OTHER OPIOIDS, INITIAL 04/17/2016 GERALD JOHNSTON DO Ot Z95.5 PRESENCE OF CORONARY ANGIOPLASTY IMPLANT 05/04/2016 NICOLA CURTIS MD Ot M25.572 PAIN IN LEFT ANKLE AND JOINTS OF LEFT FO 05/04/2016 NICOLA CURTIS MD Ot 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 05/06/2016 NICOLA CURTIS MD, Ot M25.572 PAIN IN LEFT ANKLE AND JOINTS OF LEFT FO 05/06/2016 NICOLA CURTIS MD, Ot 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 05/16/2016 GERALD JOHNSTON DO Ot M17.12 UNILATERAL PRIMARY OSTEOARTHRITIS, LEFT 05/16/2016 GERALD JOHNSTON DO Ot Z01.812 ENCOUNTER FOR PREPROCEDURAL LABORATORY E 05/16/2016 GERALD JOHNSTON DO Ot Z11.2 ENCOUNTER FOR SCREENING FOR OTHER BACTER 05/22/2016 GERALD JOHNSTON DO Ot Z47.1 AFTERCARE FOLLOWING JOINT REPLACEMENT GARCIA 05/22/2016 GERALD JOHNSTON DO Ot Z96.652 PRESENCE OF LEFT ARTIFICIAL KNEE JOINT 05/23/2016 GERALD JOHNSTON DO Ot M79.604 PAIN IN RIGHT LEG 05/23/2016 GERALD JOHNSTON DO Ot N39.0 URINARY TRACT INFECTION, SITE NOT SPECIF 05/23/2016 GERALD JOHNSTON DO Ot R 05 COUGH 05/23/2016 GERALD JOHNSTON DO Ot R79.1 ABNORMAL COAGULATION PROFILE 05/23/2016 GERALD JOHNSTON DO Ot Z01.812 ENCOUNTER FOR PREPROCEDURAL LABORATORY E 05/23/2016 GERALD JOHNSTON DO Ot 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 05/29/2016 GERALD JOHNSTON DO Ot M79.604 PAIN IN RIGHT LEG 05/29/2016 GERALD JOHNSTON DO Ot N39.0 URINARY TRACT INFECTION, SITE NOT SPECIF 05/29/2016 GERALD JOHNSTON DO Ot R 05 COUGH 05/29/2016 GERALD JOHNSTON DO Ot R79.1 ABNORMAL COAGULATION PROFILE 05/29/2016 GERALD JOHNSTON DO Ot Z01.812 ENCOUNTER FOR PREPROCEDURAL LABORATORY E 05/29/2016 GERALD JOHNSTON DO Ot 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 06/30/2016 GERALD JOHNSTON DO Ot M79.604 PAIN IN RIGHT LEG 06/30/2016 GERALD JOHNSTON DO Ot N39.0 URINARY TRACT INFECTION, SITE NOT SPECIF 06/30/2016 GERALD JOHNSTON DO Ot R 05 COUGH 06/30/2016 GERALD JOHNSTON DO Ot R79.1 ABNORMAL COAGULATION PROFILE 06/30/2016 GERALD JOHNSTON DO Ot Z01.812 ENCOUNTER FOR PREPROCEDURAL LABORATORY E 06/30/2016 GERALD JOHNSTON DO Ot 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 81 POSTLAMINECT SYND-CERV 09/02/2016 TEE COLINDRES MD Ot V58. 69 OTH MED,LT,CURRENT USE 09/02/2016 MANDEEP SNIDER CARPET MEASURER Ot 789.30 ABDOMINAL/PELVIC SWELLING,MASS/LUMP UNSP 09/02/2016 MANDEEP SNIDER CARPET MEASURER Ot 922.2 CONTUSION ABDOMINAL WALL 09/02/2016 MANDEEP SNIDER CARPET MEASURER Ot E000.8 OTHER EXTERNAL CAUSE STATUS 09/02/2016 MANDEEP SNIDER CARPET MEASURER Ot E928.9 ACCIDENT NOS 09/02/2016 PRESTON GUTIERREZ EGRALD Suárez Ot M17.12 UNILATERAL PRIMARY OSTEOARTHRITIS, LEFT 09/02/2016 PRESTON GUTIERREZ GERALD Suárez Ot Z01.812 ENCOUNTER FOR PREPROCEDURAL LABORATORY E 09/02/2016 PRESTON GUTIERREZ GERALD Suárez Ot Z11.2 ENCOUNTER FOR SCREENING FOR OTHER BACTER 09/02/2016 PRESTON DO, GERALD Suárez Ot M79.604 PAIN IN RIGHT LEG 09/02/2016 PRESTON , GERALD Suárez Ot N39.0 URINARY TRACT INFECTION, SITE NOT SPECIF 09/02/2016 PRESTON DO, GERALD Kamini Ot R 05 COUGH 09/02/2016 PRESTON DO, GERALD Suárez Ot R79.1 ABNORMAL COAGULATION PROFILE 09/02/2016 PRESTON GUTIERREZ, GERALD Suárez Ot Z01.812 ENCOUNTER FOR PREPROCEDURAL LABORATORY E 09/02/2016 PRESTON DO, GERALD Suárez Ot 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 09/02/2016 PRESTON , GERALD Suárez Ot M17.12 UNILATERAL PRIMARY OSTEOARTHRITIS, LEFT 09/02/2016 PRESTON DO, GERALD Suárez Ot Z01.812 ENCOUNTER FOR PREPROCEDURAL LABORATORY E 09/02/2016 PRESTON , GERALD Suárez Ot Z11.2 ENCOUNTER FOR SCREENING FOR OTHER BACTER 09/02/2016 PRESTON DO, GERALD Suárez Ot M79.604 PAIN IN RIGHT LEG 09/02/2016 PRESTON DO, GERALD Suárez Ot N39.0 URINARY TRACT INFECTION, SITE NOT SPECIF 09/02/2016 PRESTON DO, GERALD F Ot R 05 COUGH 09/02/2016 PRESTON DO, GERALD Suárez Ot R79.1 ABNORMAL COAGULATION PROFILE 09/02/2016 PRESTON , GERALD Suárez Ot Z01.812 ENCOUNTER FOR PREPROCEDURAL LABORATORY E 09/02/2016 PRESTON , GERALD Suárez Ot 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 09/03/2016 MANDEEP SNIDER CARPET MEASURER Ot I 10 ESSENTIAL (PRIMARY) HYPERTENSION 09/03/2016 MANDEEP SNIDERP Ot I25.10 ATHSCL HEART DISEASE OF [place] CORONARY 09/03/2016 MANDEEP SNIDER CARPET MEASURER Ot I25.84 CORONARY ATHEROSCLEROSIS DUE TO [place] 09/03/2016 MANDEEP SNIDERP Ot I44.7 LEFT BUNDLE-BRANCH BLOCK, UNSPECIFIED 09/03/2016 MANDEEP SNIDERP Ot R73.09 OTHER ABNORMAL GLUCOSE 09/03/2016 MANDEEP SNIDERP Ot Z79.899 OTHER MCC (CURRENT) DRUG THERAPY 09/03/2016 MANDEEP SNIDERP Ot Z87.891 PERSONAL HISTORY OF NICOTINE DEPENDENCE 10/08/2016 MANDEEP SNIDER CARPET MEASURER Ot I 10 ESSENTIAL (PRIMARY) HYPERTENSION 10/08/2016 MANDEEP SNIDER L CARPET MEASURER Ot I25.10 ATHSCL HEART DISEASE OF [place] CORONARY 10/08/2016 MANDEEP SNIDER CARPET MEASURER Ot I25.84 CORONARY ATHEROSCLEROSIS DUE TO [place] 10/08/2016 MANDEEP SNIDER CARPET MEASURER Ot I44.7 LEFT BUNDLE-BRANCH BLOCK, UNSPECIFIED 10/08/2016 MANDEEP SNIDER L CARPET MEASURER Ot R73.09 OTHER ABNORMAL GLUCOSE 10/08/2016 MANDEEP SNIDER L CARPET MEASURER Ot Z79.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 (CURRENT) DRUG THERAPY 10/08/2016 MANDEEP SNIDER CARPET MEASURER Ot Z87.891 PERSONAL HISTORY OF NICOTINE DEPENDENCE 10/13/2016 GREGOR ZULETA FACC, ALI FACP CCDS Ot I25.10 ATHSCL HEART DISEASE OF [place] CORONARY 10/13/2016 GREGOR ZULETA FACC, ALI FACP CCDS Ot I25.10 ATHSCL HEART DISEASE OF [place] CORONARY 10/14/2016 MORTEZAMANDEEP KRAUS CARPET MEASURER Ot I25.10 ATHSCL HEART DISEASE OF [place] CORONARY 10/14/2016 MANDEEP SNIDER CARPET MEASURER Ot I25.10 ATHSCL HEART DISEASE OF [place] CORONARY 10/14/2016 MANDEEP SNIDER CARPET MEASURER Ot I25.10 ATHSCL HEART DISEASE OF [place] CORONARY 10/15/2016 GREGOR ZULETA FACC, ALI FACP CCDS Ot I25.10 ATHSCL HEART DISEASE OF [place] CORONARY 10/15/2016 GREGOR ZULETA FACC, ALI FACP CCDS Ot I10 ESSENTIAL (PRIMARY) HYPERTENSION 10/15/2016 GREGOR ZULETA FACC, ALI FACP CCDS Ot I25.10 ATHSCL HEART DISEASE OF [place] CORONARY 10/15/2016 GREGOR ZULETA FACC, ALI FACP CCDS Ot 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 10/15/2016 GREGOR ZULETA FACC, ALI FACP CCDS Ot I73.9 PERIPHERAL VASCULAR DISEASE, UNSPECIFIED 10/20/2016 MORTEZAEFRA MANDEEP L CARPET MEASURER Ot E78.5 HYPERLIPIDEMIA, UNSPECIFIED 10/20/2016 MORTEZAMANDEEP KRAUS L CARPET MEASURER Ot I25.10 ATHSCL HEART DISEASE OF [place] CORONARY 11/04/2016 GREGOR ZULETA FACC, ALI FACP CCDS Ot I10 ESSENTIAL (PRIMARY) HYPERTENSION 11/04/2016 GREGOR ZULETA [facility], ALI FACP CCDS Ot I25.10 ATHSCL HEART DISEASE OF [place] CORONARY 11/04/2016 GREGOR ZULETA [facility], ALI FACP CCDS Ot 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 11/04/2016 GREGOR ZULETA [facility], ALI FACP CCDS Ot I73.9 PERIPHERAL VASCULAR DISEASE, UNSPECIFIED 11/06/2016 BAIMAMANDEEP L CARPET MEASURER Ot E78.5 HYPERLIPIDEMIA, UNSPECIFIED 11/06/2016 BAIMA, MANDEEP L CARPET MEASURER Ot I25.10 ATHSCL HEART DISEASE OF [place] CORONARY 11/12/2016 GREGOR ZULETA [facility], ALI FACP CCDS Ot I10 ESSENTIAL (PRIMARY) HYPERTENSION 11/12/2016 GREGOR ZULETA [facility], ALI FACP CCDS Ot I25.10 ATHSCL HEART DISEASE OF [place] CORONARY 11/12/2016 GREGOR ZULETA [facility], ALI FACP CCDS Ot 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 11/12/2016 GREGOR ZULETA [facility], ALI FACP CCDS Ot I73.9 PERIPHERAL VASCULAR DISEASE, UNSPECIFIED 02/02/2017 KANAMANDEEPRAMMYE R OD Ot 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, UNSPECIFIED E 02/03/2017 KANNARR, LISA R OD Ot 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, UNSPECIFIED E 02/24/2017 KANNARR, LISA R OD Ot 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, UNSPECIFIED E 03/03/2017 KANNARR, LISA R OD Ot 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, UNSPECIFIED E 05/11/2017 ELLY FAM APRN Ot I10 ESSENTIAL (PRIMARY) HYPERTENSION 05/11/2017 ELLY FAM APRN Ot M19.90 UNSPECIFIED OSTEOARTHRITIS, UNSPECIFIED 05/11/2017 ELLY FAM APRN Ot N99.820 POSTPROC HEMOR OF A SYS ORG FOLLOWING 05/11/2017 ELLY FAM APRN Ot Z79.02 ASBESTOS ABATEMENT TECHNICIAN (CURRENT) USE OF ANTITHROMBOTI 05/11/2017 ELLY FAM APRN Ot Z79.82 MCC (CURRENT) USE OF ASPIRIN 05/11/2017 ELLY FAM APRN Ot Z85.828 PERSONAL HISTORY OF OTHER MALIGNANT NEOP 05/11/2017 ELLY FAM APRN Ot Z87.891 PERSONAL HISTORY OF NICOTINE DEPENDENCE 05/11/2017 ELLY FAM APRN Ot Z95 .5 PRESENCE OF CORONARY ANGIOPLASTY IMPLANT 05/11/2017 ELLY FAM APRN Ot Z98.890 OTHER SPECIFIED POSTPROCEDURAL STATES 05/14/2017 ELLY FAM APRN Ot I10 ESSENTIAL (PRIMARY) HYPERTENSION 05/14/2017 ELLY FAM APRN Ot M19.90 UNSPECIFIED OSTEOARTHRITIS, UNSPECIFIED 05/14/2017 ELLY FAM APRN Ot N99.820 POSTPROC HEMOR OF A SYS ORG FOLLOWING 05/14/2017 ELLY FAM APRN Ot Z79.02 MCC (CURRENT) USE OF ANTITHROMBOTI 05/14/2017 ELLY FAM APRN Ot Z79.82 ASBESTOS ABATEMENT TECHNICIAN (CURRENT) USE OF ASPIRIN 05/14/2017 ELLY FAM APRN Ot Z85.828 PERSONAL HISTORY OF OTHER MALIGNANT NEOP 05/14/2017 ELLY FAM APRN Ot Z87.891 PERSONAL HISTORY OF NICOTINE DEPENDENCE 05/14/2017 ELLY FAM APRN Ot Z95 .5 PRESENCE OF CORONARY ANGIOPLASTY IMPLANT 05/14/2017 ELLY FAM APRN Ot Z98.890 OTHER SPECIFIED POSTPROCEDURAL STATES 06/12/2017 ERIC CORDOVA MD Ot C61 MALIGNANT NEOPLASM OF PROSTATE 06/12/2017 ERIC CORDOVA MD Ot K80.2 0 CALCULUS OF GALLBLADDER W/O CHOLECYSTITI 06/12/2017 ERIC CORDOVA MD Ot R91.8 OTHER NONSPECIFIC ABNORMAL FINDING OF DAVID 06/18/2017 ERIC CORDOVA MD Ot C61 MALIGNANT NEOPLASM OF PROSTATE 06/18/2017 ERIC CORDOVA MD Ot K80.2 0 CALCULUS OF GALLBLADDER W/O CHOLECYSTITI 06/18/2017 ERIC CORDOVA MD Ot R91.8 OTHER NONSPECIFIC ABNORMAL FINDING OF DAVID 08/20/2017 AIDAN CUEVA MD Ot I10 ESSENTIAL (PRIMARY) HYPERTENSION 08/20/2017 AIDAN CUEVA MD Ot M19.90 UNSPECIFIED OSTEOARTHRITIS, UNSPECIFIED 08/20/2017 AIDAN CUEVA MD Ot M25.461 EFFUSION, RIGHT KNEE 08/20/2017 AIDAN CUEVA MD Ot R60.0 LOCALIZED EDEMA 08/20/2017 AIDAN CUEVA MD Ot Z79.82 MCC (CURRENT) USE OF ASPIRIN 08/20/2017 AIDAN CUEVA MD Ot Z87.891 PERSONAL HISTORY OF NICOTINE DEPENDENCE 08/28/2017 AIDAN CUEVA MD Ot I10 ESSENTIAL (PRIMARY) HYPERTENSION 08/28/2017 AIDAN CUEVA MD Ot M19.90 UNSPECIFIED OSTEOARTHRITIS, UNSPECIFIED 08/28/2017 AIDAN CUEVA MD Ot M25.461 EFFUSION, RIGHT KNEE 08/28/2017 AIDAN CUEVA MD Ot R60.0 LOCALIZED EDEMA 08/28/2017 AIDAN CUEVA MD Ot Z79.82 ASBESTOS ABATEMENT TECHNICIAN (CURRENT) USE OF ASPIRIN 08/28/2017 AIDAN CUEVA MD Ot Z87.891 PERSONAL HISTORY OF NICOTINE DEPENDENCE 09/14/2017 Ot 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 81 POSTLAMINECT SYND-CERV 09/14/2017 TEE COLINDRES MD Ot V58. 69 OTH MED,LT,CURRENT USE 09/14/2017 MANDEEP SNIDERP Ot 789.30 ABDOMINAL/PELVIC SWELLING,MASS/LUMP UNSP 09/14/2017 MANDEEP SNIDERP Ot 922.2 CONTUSION ABDOMINAL WALL 09/14/2017 MANDEEP SNIDERP Ot E000.8 OTHER EXTERNAL CAUSE STATUS 09/14/2017 MANDEEP SNIDERP Ot E928.9 ACCIDENT NOS 09/14/2017 GERALD JOHNSTON DO Ot M17.12 UNILATERAL PRIMARY OSTEOARTHRITIS, LEFT 09/14/2017 GERALD JOHNSTON DO Ot Z01.812 ENCOUNTER FOR PREPROCEDURAL LABORATORY E 09/14/2017 GERALD JOHNSTON DO Ot Z11.2 ENCOUNTER FOR SCREENING FOR OTHER BACTER 09/14/2017 GERALD JOHNSTON DO Ot M79.604 PAIN IN RIGHT LEG 09/14/2017 GERALD JOHNSTON DO Ot N39.0 URINARY TRACT INFECTION, SITE NOT SPECIF 09/14/2017 GERALD JOHNSTON DO Ot R 05 COUGH 09/14/2017 GERALD JOHNSTON DO Ot R79.1 ABNORMAL COAGULATION PROFILE 09/14/2017 GERALD JOHNSTON DO Ot Z01.812 ENCOUNTER FOR PREPROCEDURAL LABORATORY E 09/14/2017 GERALD JOHNSTON DO Ot 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 09/14/2017 GREGOR MILLERC, ALI FACP CCDS Ot I10 ESSENTIAL (PRIMARY) HYPERTENSION 09/14/2017 GREGOR ZULETA FACC, ALI FACP CCDS Ot I25.10 ATHSCL HEART DISEASE OF [place] CORONARY 09/14/2017 GREGOR ZULETA FACC, ALI FACP CCDS Ot 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 09/14/2017 GREGOR ZULETA FACC, ALI FACP CCDS Ot I73.9 PERIPHERAL VASCULAR DISEASE, UNSPECIFIED 09/14/2017 MANDEEP SNIDER CARPET MEASURER Ot E78.5 HYPERLIPIDEMIA, UNSPECIFIED 09/14/2017 BAIMANDEEP KRAUS L CARPET MEASURER Ot I25.10 ATHSCL HEART DISEASE OF [place] CORONARY 09/14/2017 LISA MCDONALD OD Ot 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, UNSPECIFIED E 09/14/2017 ERIC CORDOVA MD Ot C61 MALIGNANT NEOPLASM OF PROSTATE 09/14/2017 ERIC CORDOVA MD Ot K80.2 0 CALCULUS OF GALLBLADDER W/O CHOLECYSTITI 09/14/2017 ERIC CORDOVA MD Ot R91.8 OTHER NONSPECIFIC ABNORMAL FINDING OF DAVID 09/16/2017 GREGOR MILLERC, ALI FACP CCDS Ot E66.8 OTHER OBESITY 09/16/2017 GREGOR ZULETA FACC, ALI FACP CCDS Ot I10 ESSENTIAL (PRIMARY) HYPERTENSION 09/16/2017 GREGOR ZULETA FACC, ALI FACP CCDS Ot I25.10 ATHSCL HEART DISEASE OF [place] CORONARY 09/16/2017 GREGOR ZULETA FACC, ALI FACP CCDS Ot 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 09/16/2017 GREGOR MD FACC, ALI FACP CCDS Ot I73.89 OTHER SPECIFIED PERIPHERAL VASCULAR DISE 09/16/2017 GREGOR ZULETA FACC, ALI FACP CCDS Ot M79.89 OTHER SPECIFIED SOFT TISSUE DISORDERS 09/16/2017 GREGOR ZULETA FACC, ALI FACP CCDS Ot R06.02 SHORTNESS OF BREATH 09/21/2017 GREGOR ZULETA FACC, ALI FACP CCDS Ot E66.8 OTHER OBESITY 09/21/2017 GREGOR ZULETA FACC, ALI FACP CCDS Ot I10 ESSENTIAL (PRIMARY) HYPERTENSION 09/21/2017 GREGOR ZULETA FACMarissa, ALI FACP CCDS Ot I25.10 ATHSCL HEART DISEASE OF [place] CORONARY 09/21/2017 GREGOR ZULETA FACC, ALI FACP CCDS Ot 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 09/21/2017 GREGOR ZULETA FACC, ALI FACP CCDS Ot I73.89 OTHER SPECIFIED PERIPHERAL VASCULAR DISE 09/21/2017 GREGOR ZULETA FACC, ALI FACP CCDS Ot M79.89 OTHER SPECIFIED SOFT TISSUE DISORDERS 09/21/2017 GREGOR ZULETA FACC, ALI FACP CCDS Ot R06.02 SHORTNESS OF BREATH 09/24/2017 GREGOR ZULETA FACC, ALI FACP CCDS Ot E66.8 OTHER OBESITY 09/24/2017 GREGOR ZULETA FACC, ALI FACP CCDS Ot I10 ESSENTIAL (PRIMARY) HYPERTENSION 09/24/2017 GREGOR ZULETA FACC, ALI FACP CCDS Ot I25.10 ATHSCL HEART DISEASE OF [place] CORONARY 09/24/2017 GREGOR ZULETA FACC, ALI FACP CCDS Ot 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 09/24/2017 GREGOR ZULETA FACC, ALI FACP CCDS Ot I73.89 OTHER SPECIFIED PERIPHERAL VASCULAR DISE 09/24/2017 GREGOR ZULETA FACC, ALI FACP CCDS Ot M79.89 OTHER SPECIFIED SOFT TISSUE DISORDERS 09/24/2017 GREGOR ZULETA FACC, ALI FACP CCDS Ot R06.02 SHORTNESS OF BREATH 10/07/2017 GREGOR ZULETA FACC, ALI FACP CCDS Ot E66.8 OTHER OBESITY 10/07/2017 GREGOR ZULETA FACC, ALI FACP CCDS Ot I10 ESSENTIAL (PRIMARY) HYPERTENSION 10/07/2017 GREGOR ZULETA FACC, ALI FACP CCDS Ot I25.10 ATHSCL HEART DISEASE OF [place] CORONARY 10/07/2017 GREGOR ZULETA FACC, ALI FACP CCDS Ot 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 10/07/2017 GREGOR ZULETA FACC, ALI FACP CCDS Ot I73.89 OTHER SPECIFIED PERIPHERAL VASCULAR DISE 10/07/2017 GREGOR ZULETA FACC, ALI FACP CCDS Ot M79.89 OTHER SPECIFIED SOFT TISSUE DISORDERS 10/07/2017 GREGOR ZULETA FACC, ALI FACP CCDS Ot R06.02 SHORTNESS OF BREATH 10/09/2017 GREGOR MILLERC, ALI FACP CCDS Ot E66.8 OTHER OBESITY 10/09/2017 GREGOR ZULETA FACC, ALI FACP CCDS Ot I10 ESSENTIAL (PRIMARY) HYPERTENSION 10/09/2017 GREGOR ZULETA FACC, ALI FACP CCDS Ot I25.10 ATHSCL HEART DISEASE OF [place] CORONARY 10/09/2017 GREGOR MILLERC, ALI FACP CCDS Ot 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 10/09/2017 GREGOR MILLERC, ALI FACP CCDS Ot I73.89 OTHER SPECIFIED PERIPHERAL VASCULAR DISE 10/09/2017 GREGOR MILLERC, ALI FACP CCDS Ot M79.89 OTHER SPECIFIED SOFT TISSUE DISORDERS 10/09/2017 GREGOR MILLERC, ALI FACP CCDS Ot R06.02 SHORTNESS OF BREATH 10/15/2017 GREGOR ZULETA FACC, ALI FACP CCDS Ot E66.8 OTHER OBESITY 10/15/2017 GREGOR MILLERC, ALI FACP CCDS Ot I10 ESSENTIAL (PRIMARY) HYPERTENSION 10/15/2017 GREGOR ZULETA FACC, ALI FACP CCDS Ot I25.10 ATHSCL HEART DISEASE OF [place] CORONARY 10/15/2017 GREGOR ZULETA FACC, ALI FACP CCDS Ot 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 10/15/2017 GREGOR ZULETA FACC, ALI FACP CCDS Ot I73.89 OTHER SPECIFIED PERIPHERAL VASCULAR DISE 10/15/2017 GREGOR MILLERC, ALI FACP CCDS Ot M79.89 OTHER SPECIFIED SOFT TISSUE DISORDERS 10/15/2017 GREGOR MILLERC, ALI FACP CCDS Ot R06.02 SHORTNESS OF BREATH 10/15/2017 GREGOR MILLERC, ALI FACP CCDS Ot E66.8 OTHER OBESITY 10/15/2017 GREGOR MILLERC, ALI FACP CCDS Ot I10 ESSENTIAL (PRIMARY) HYPERTENSION 10/15/2017 GREGOR ZULETA [facility] CCDS Ot I25.10 ATHSCL HEART DISEASE OF [place] CORONARY 10/15/2017 GREGOR ZULETA [facility] CCDS Ot 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 10/15/2017 GREGOR ZULETA [facility] CCDS Ot I73.89 OTHER SPECIFIED PERIPHERAL VASCULAR DISE 10/15/2017 GREGOR ZULETA [facility] CCDS Ot M79.89 OTHER SPECIFIED SOFT TISSUE DISORDERS 10/15/2017 GREGOR ZULETA [facility] CCDS Ot R06.02 SHORTNESS OF BREATH 02/25/2018 ERICKA DIAZ MD Ot G56.01 CARPAL TUNNEL SYNDROME, RIGHT UPPER LIMB 02/25/2018 ERICKA DIAZ MD Ot Z01.818 ENCOUNTER FOR OTHER PREPROCEDURAL EXAMIN 02/25/2018 ERICKA DIAZ MD Ot G56.01 CARPAL TUNNEL SYNDROME, RIGHT UPPER LIMB 02/25/2018 ERICKA DIAZ MD Ot Z01.818 ENCOUNTER FOR OTHER PREPROCEDURAL EXAMIN 03/03/2018 ERICKA DIAZ MD Ot G56.01 CARPAL TUNNEL SYNDROME, RIGHT UPPER LIMB 03/03/2018 ERICKA DIAZ MD Ot I1 0 ESSENTIAL (PRIMARY) HYPERTENSION 03/03/2018 ERICKA DIAZ MD Ot I25.10 ATHSCL HEART DISEASE OF [place] CORONARY 03/03/2018 ERICKA DIAZ MD Ot Z79.82 MCC (CURRENT) USE OF ASPIRIN 03/03/2018 ERICKA DIAZ MD Ot Z79.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 (CURRENT) DRUG THERAPY 03/03/2018 ERICKA DIAZ MD Ot Z87.891 PERSONAL HISTORY OF NICOTINE DEPENDENCE 03/03/2018 ERICKA DIAZ MD Ot Z95.5 PRESENCE OF CORONARY ANGIOPLASTY IMPLANT 03/03/2018 ERICKA DIAZ MD Ot Z96.653 PRESENCE OF ARTIFICIAL KNEE JOINT, BILAT 03/05/2018 ERICKA DIAZ MD Ot G56.01 CARPAL TUNNEL SYNDROME, RIGHT UPPER LIMB 03/05/2018 ERICKA DIAZ MD Ot I1 0 ESSENTIAL (PRIMARY) HYPERTENSION 03/05/2018 ERICKA DIAZ MD Ot I25.10 ATHSCL HEART DISEASE OF [place] CORONARY 03/05/2018 ERICKA DIAZ MD Ot Z79.82 MCC (CURRENT) USE OF ASPIRIN 03/05/2018 ERICKA DIAZ MD Ot Z79.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 (CURRENT) DRUG THERAPY 03/05/2018 ERICKA DIAZ MD, Ot Z87.891 PERSONAL HISTORY OF NICOTINE DEPENDENCE 03/05/2018 ERICKA DAIZ MD Ot Z95.5 PRESENCE OF CORONARY ANGIOPLASTY IMPLANT 03/05/2018 ERICKA DIAZ MD Ot Z96.653 PRESENCE OF ARTIFICIAL KNEE JOINT, BILAT 03/23/2018 GREGOR ZULETA FACC, ALI FACP CCDS Ot C61 MALIGNANT NEOPLASM OF PROSTATE 03/23/2018 GREGOR ZULETA FACC, ALI FACP CCDS Ot E66.9 OBESITY, UNSPECIFIED 03/23/2018 GREGOR ZULETA FACC, ALI FACP CCDS Ot I10 ESSENTIAL (PRIMARY) HYPERTENSION 03/23/2018 GREGOR ZULETA FACC, ALI FACP CCDS Ot I25.10 ATHSCL HEART DISEASE OF [place] CORONARY 03/23/2018 GREGOR ZULETA FACC, ALI FACP CCDS Ot I44.7 LEFT BUNDLE-BRANCH BLOCK, UNSPECIFIED 03/23/2018 GREGOR ZULETA FACC, ALI FACP CCDS Ot I73.9 PERIPHERAL VASCULAR DISEASE, UNSPECIFIED 03/23/2018 GREGOR ZULETA FACC, ALI FACP CCDS Ot Z68.33 BODY MASS INDEX (BMI) 33.0-33.9, ADULT 03/23/2018 GREGOR ZULETA FACC, ALI FACP CCDS Ot Z79.02 MCC (CURRENT) USE OF ANTITHROMBOTI 03/23/2018 GREGOR ZULETA FACC, ALI FACP CCDS Ot Z79.82 ASBESTOS ABATEMENT TECHNICIAN (CURRENT) USE OF ASPIRIN 03/23/2018 GREGOR ZULETA FACC, ALI FACP CCDS Ot Z79.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 (CURRENT) DRUG THERAPY 03/23/2018 GREGOR ZULETA FACC, ALI FACP CCDS Ot Z87.891 PERSONAL HISTORY OF NICOTINE DEPENDENCE 03/23/2018 GREGOR ZULETA FACC, ALI FACP CCDS Ot Z95.5 PRESENCE OF CORONARY ANGIOPLASTY IMPLANT 03/25/2018 GREGOR ZULETA FACC, ALI FACP CCDS Ot C61 MALIGNANT NEOPLASM OF PROSTATE 03/25/2018 GREGOR ZULETA FACC, ALI FACP CCDS Ot E66.9 OBESITY, UNSPECIFIED 03/25/2018 GREGOR ZULETA FACC, ALI FACP CCDS Ot I10 ESSENTIAL (PRIMARY) HYPERTENSION 03/25/2018 GREGOR ZULETA FACC, ALI FACP CCDS Ot I25.10 ATHSCL HEART DISEASE OF [place] CORONARY 03/25/2018 GREGOR ZULETA FACC, LAMAR FACP CCDS Ot I44.7 LEFT BUNDLE-BRANCH BLOCK, UNSPECIFIED 03/25/2018 GREGOR ZULETA FACC, ALI FACP CCDS Ot I73.9 PERIPHERAL VASCULAR DISEASE, UNSPECIFIED 03/25/2018 GREGOR ZULETA FACC, ALI FACP CCDS Ot Z68.33 BODY MASS INDEX (BMI) 33.0-33.9, ADULT 03/25/2018 LAMAR BUNDY MD, FACC FACP CCDS Ot Z79.02 MCC (CURRENT) USE OF ANTITHROMBOTI 03/25/2018 LAMAR BUNDY MD, FACC FACP CCDS Ot Z79.82 ASBESTOS ABATEMENT TECHNICIAN (CURRENT) USE OF ASPIRIN 03/25/2018 GREGOR ZULETA FACC, LAMAR FACP CCDS Ot Z79.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 (CURRENT) DRUG THERAPY 03/25/2018 GREGOR ZULETA FACC ALI FACP CCDS Ot Z87.891 PERSONAL HISTORY OF NICOTINE DEPENDENCE 03/25/2018 GREGOR ZULETA FACC, ALI FACP CCDS Ot Z95.5 PRESENCE OF CORONARY ANGIOPLASTY IMPLANT 03/26/2018 GREGOR ZULETA FACC, ALI FACP CCDS Ot C61 MALIGNANT NEOPLASM OF PROSTATE 03/26/2018 GREGOR ZULETA FACC, LAMAR FACP CCDS Ot E66.9 OBESITY, UNSPECIFIED 03/26/2018 GREGOR ZULETA FACC, ALI FACP CCDS Ot I10 ESSENTIAL (PRIMARY) HYPERTENSION 03/26/2018 GREGOR ZULETA FACC, ALI FACP CCDS Ot I25.10 ATHSCL HEART DISEASE OF [place] CORONARY 03/26/2018 GREGOR ZULETA FACC, ALI FACP CCDS Ot I44.7 LEFT BUNDLE-BRANCH BLOCK, UNSPECIFIED 03/26/2018 GREGOR ZULETA FACC, ALI FACP CCDS Ot I73.9 PERIPHERAL VASCULAR DISEASE, UNSPECIFIED 03/26/2018 GREGOR ZULETA FACC, ALI FACP CCDS Ot Z68.33 BODY MASS INDEX (BMI) 33.0-33.9, ADULT 03/26/2018 GREGOR ZULETA FACC, LAMAR [facility] CCDS Ot Z79.02 ASBESTOS ABATEMENT TECHNICIAN (CURRENT) USE OF ANTITHROMBOTI 03/26/2018 GREGOR ZULETA FACC, LAMAR [facility] CCDS Ot Z79.82 ASBESTOS ABATEMENT TECHNICIAN (CURRENT) USE OF ASPIRIN 03/26/2018 GREGOR ZULETA FACC, LAMAR [facility] CCDS Ot Z79.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 (CURRENT) DRUG THERAPY 03/26/2018 GREGOR ZULETA FACC, LAMAR [facility] CCDS Ot Z87.891 PERSONAL HISTORY OF NICOTINE DEPENDENCE 03/26/2018 GREGOR ZULETA FACC, LAMAR [facility] CCDS Ot Z95.5 PRESENCE OF CORONARY ANGIOPLASTY IMPLANT 04/16/2018 TENISHA HERNÁNDEZ DO Ot I10 ESSENTIAL (PRIMARY) HYPERTENSION 04/16/2018 TENISHA HERNÁNDEZ DO Ot I25.10 ATHSCL HEART DISEASE OF [place] CORONARY 04/16/2018 TENISHA HERNÁNDEZ DO Ot K02.9 DENTAL CARIES, UNSPECIFIED 04/16/2018 TENISHA HERNÁNDEZ DO Ot K08.89 OTHER SPECIFIED DISORDERS OF TEETH AND S 04/16/2018 TENISHA HERNÁNDEZ DO Ot R59.0 LOCALIZED ENLARGED LYMPH NODES 04/16/2018 TENISHA HERÁNNDEZ DO Ot S03.42X A SPRAIN OF JAW, LEFT SIDE, INITIAL ENCOUN 04/16/2018 TENISHA HERNÁNDEZ DO Ot W01.198 A FALL SAME LEV FROM SLIP/TRIP W STRIKE AG 04/16/2018 TENISHA HERNÁNDEZ DO Ot Z79.02 ASBESTOS ABATEMENT TECHNICIAN (CURRENT) USE OF ANTITHROMBOTI 04/16/2018 TENISHA HERNÁNDEZ DO Ot Z79.82 MCC (CURRENT) USE OF ASPIRIN 04/16/2018 TENISHA HERNÁNDEZ DO Ot Z85.46 PERSONAL HISTORY OF MALIGNANT NEOPLASM O 04/16/2018 TENISHA HERNÁNDEZ DO Ot Z85.828 PERSONAL HISTORY OF OTHER MALIGNANT NEOP 04/16/2018 TENISHA HERNÁNDEZ DO Ot Z87.891 PERSONAL HISTORY OF NICOTINE DEPENDENCE 04/16/2018 TENISHA HERNÁNDEZ DO Ot Z88.6 ALLERGY STATUS TO ANALGESIC AGENT STATUS 04/16/2018 TENISHA HERNÁNDEZ DO Ot Z88.8 ALLERGY STATUS TO OTH DRUG/MEDS/BIOL SUB 04/16/2018 TENISHA HERNÁNDEZ DO Ot Z95.5 PRESENCE OF CORONARY ANGIOPLASTY IMPLANT 04/19/2018 TENISHA HERNÁNDEZ DO Ot I10 ESSENTIAL (PRIMARY) HYPERTENSION 04/19/2018 TENISHA HERNÁNDEZ DO Ot I25.10 ATHSCL HEART DISEASE OF [place] CORONARY 04/19/2018 TENISHA HERNÁNDEZ DO Ot K02.9 DENTAL CARIES, UNSPECIFIED 04/19/2018 TENISHA HERNÁNDEZ DO Ot K08.89 OTHER SPECIFIED DISORDERS OF TEETH AND S 04/19/2018 TENISHA HERNÁNDEZ DO Ot R59.0 LOCALIZED ENLARGED LYMPH NODES 04/19/2018 TENISHA HERNÁNDEZ DO Ot S03.42X A SPRAIN OF JAW, LEFT SIDE, INITIAL ENCOUN 04/19/2018 TENISHA HERNÁNDEZ DO Ot W01.198 A FALL SAME LEV FROM SLIP/TRIP W STRIKE AG 04/19/2018 TENISHA HERNÁNDEZ DO Ot Z79.02 MCC (CURRENT) USE OF ANTITHROMBOTI 04/19/2018 TENISHA HERNÁNDEZ DO Ot Z79.82 MCC (CURRENT) USE OF ASPIRIN 04/19/2018 TENISHA HERNÁNDEZ DO Ot Z85.46 PERSONAL HISTORY OF MALIGNANT NEOPLASM O 04/19/2018 TENISHA HERNÁNDEZ DO Ot Z85.828 PERSONAL HISTORY OF OTHER MALIGNANT NEOP 04/19/2018 TENISHA HERNÁNDEZ DO Ot Z87.891 PERSONAL HISTORY OF NICOTINE DEPENDENCE 04/19/2018 EDGAR GUTIERREZ TENISHA Mazariegos Ot Z88.6 ALLERGY STATUS TO ANALGESIC AGENT STATUS 04/19/2018 TENISHA HERNÁNDEZ DO Ot Z88.8 ALLERGY STATUS TO OTH DRUG/MEDS/BIOL SUB 04/19/2018 TENISHA HERNÁNDEZ DO Ot Z95.5 PRESENCE OF CORONARY ANGIOPLASTY IMPLANT 07/26/2018 PERLA RING MD Ot 723.4 BRACHIAL NEURITIS NOS 07/26/2018 TEE COLINDRES MD Ot 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 81 POSTLAMINECT SYND-CERV 07/26/2018 TEE COLINDRES MD Ot V58. 69 OTH MED,LT,CURRENT USE 07/26/2018 MANDEEP SNIDER CARPET MEASURER Ot 789.30 ABDOMINAL/PELVIC SWELLING,MASS/LUMP UNSP 07/26/2018 MANDEEP SNIDER CARPET MEASURER Ot 922.2 CONTUSION ABDOMINAL WALL 07/26/2018 MANDEEP SNIDER CARPET MEASURER Ot E000.8 OTHER EXTERNAL CAUSE STATUS 07/26/2018 MANDEEP SNIDER Bess CARPET MEASURER Ot E928.9 ACCIDENT NOS 07/26/2018 GERALD JOHNSTNO DO Ot M17.12 UNILATERAL PRIMARY OSTEOARTHRITIS, LEFT 07/26/2018 GERALD JOHNSTON DO Ot Z01.812 ENCOUNTER FOR PREPROCEDURAL LABORATORY E 07/26/2018 GERALD JOHNSTON DO Ot Z11.2 ENCOUNTER FOR SCREENING FOR OTHER BACTER 07/26/2018 GERALD JOHNSTON DO Ot M79.604 PAIN IN RIGHT LEG 07/26/2018 GERALD JOHNSTON DO Ot N39.0 URINARY TRACT INFECTION, SITE NOT SPECIF 07/26/2018 GERALD JOHNSTON DO Ot R 05 COUGH 07/26/2018 GERALD JOHNSTON DO Ot R79.1 ABNORMAL COAGULATION PROFILE 07/26/2018 GERALD JOHNSTON DO Ot Z01.812 ENCOUNTER FOR PREPROCEDURAL LABORATORY E 07/26/2018 GERALD JOHNSTON DO Ot 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 07/26/2018 GREGOR ZULETA FACC, ALI FACP CCDS Ot I10 ESSENTIAL (PRIMARY) HYPERTENSION 07/26/2018 GREGOR ZULETA FACC, ALI FACP CCDS Ot I25.10 ATHSCL HEART DISEASE OF [place] CORONARY 07/26/2018 GREGOR ZULETA FACC, ALI FACP CCDS Ot 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 07/26/2018 GREGOR ZULETA FACC, ALI FACP CCDS Ot I73.9 PERIPHERAL VASCULAR DISEASE, UNSPECIFIED 07/26/2018 MORTEZAEFRA MANDEEP Bess CARPET MEASURER Ot E78.5 HYPERLIPIDEMIA, UNSPECIFIED 07/26/2018 MORTEZAEFRA MANDEEP Bess CARPET MEASURER Ot I25.10 ATHSCL HEART DISEASE OF [place] CORONARY 07/26/2018 LISA MCDONALD OD Ot 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, UNSPECIFIED E 07/26/2018 ERIC CORDOVA MD Ot C61 MALIGNANT NEOPLASM OF PROSTATE 07/26/2018 ERIC CORDOVA MD Ot K80.2 0 CALCULUS OF GALLBLADDER W/O CHOLECYSTITI 07/26/2018 ERIC CORDOVA MD Ot R91.8 OTHER NONSPECIFIC ABNORMAL FINDING OF DAVID 07/26/2018 GREGOR ZULETA FACC, ALI FACP CCDS Ot E66.8 OTHER OBESITY 07/26/2018 GREGOR ZULETA FACC, ALI FACP CCDS Ot I10 ESSENTIAL (PRIMARY) HYPERTENSION 07/26/2018 GREGOR ZULETA FACC, ALI FACP CCDS Ot I25.10 ATHSCL HEART DISEASE OF [place] CORONARY 07/26/2018 GREGOR ZULETA FACC, ALI FACP CCDS Ot 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 07/26/2018 GREGOR ZULETA FACC, ALI FACP CCDS Ot I73.89 OTHER SPECIFIED PERIPHERAL VASCULAR DISE 07/26/2018 GREGOR ZULETA FACC, ALI FACP CCDS Ot M79.89 OTHER SPECIFIED SOFT TISSUE DISORDERS 07/26/2018 GREGOR ZULETA FACC, ALI FACP CCDS Ot R06.02 SHORTNESS OF BREATH 07/26/2018 GREGOR ZULETA FACC, ALI FACP CCDS Ot E66.8 OTHER OBESITY 07/26/2018 GREGOR ZULETA FACC, ALI FACP CCDS Ot I10 ESSENTIAL (PRIMARY) HYPERTENSION 07/26/2018 GREGOR ZULETA FACC, ALI FACP CCDS Ot I25.10 ATHSCL HEART DISEASE OF [place] CORONARY 07/26/2018 GREGOR ZULETA FACC, ALI FACP CCDS Ot 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 07/26/2018 GREGOR ZULETA FACC, ALI FACP CCDS Ot I73.89 OTHER SPECIFIED PERIPHERAL VASCULAR DISE 07/26/2018 GREGOR ZULETA FACC, ALI FACP CCDS Ot M79.89 OTHER SPECIFIED SOFT TISSUE DISORDERS 07/26/2018 GREGOR ZULETA FAC, ALI FACP CCDS Ot R06.02 SHORTNESS OF BREATH 08/18/2018 BLAINE ZULETA, ISAK Ramey Ot C61 MALIGNANT NEOPLASM OF PROSTATE 05/06/2019 ERCI CORDOVA MD Ot C61 MALIGNANT NEOPLASM OF PROSTATE 05/06/2019 ERIC CORDOVA MD Ot K76.8 9 OTHER SPECIFIED DISEASES OF LIVER 05/06/2019 ERIC CORDOVA MD Ot K80.2 0 CALCULUS OF GALLBLADDER W/O CHOLECYSTITI 05/06/2019 ERIC CORDOVA MD Ot 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 OF KIDNEY, ACQUIRED 06/02/2019 ERIC CORDOVA MD, Ot C61 MALIGNANT NEOPLASM OF PROSTATE 06/02/2019 ART ZULETA, ERIC Rivero Ot K76.8 9 OTHER SPECIFIED DISEASES OF LIVER 06/02/2019 ERIC CORDOVA MD Ot K80.2 0 CALCULUS OF GALLBLADDER W/O CHOLECYSTITI 06/02/2019 ART ZULETA, ERIC Rivero Ot N28.1 CYST OF KIDNEY, ACQUIRED 11/04/2019 [facility], PORTIA Mazariegos Ot I10 ESSENTIAL (PRIMARY) HYPERTENSION 11/04/2019 [facility], PORTIA Mazariegos Ot I25.10 ATHSCL HEART DISEASE OF [place] CORONARY 11/04/2019 [facility], PORTIA Mazariegos Ot I44.7 LEFT BUNDLE-BRANCH BLOCK, UNSPECIFIED 11/04/2019 [facility] PORTIA RHODES Ot 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 11/04/2019 [facility], PORTIA Mazariegos Ot R20.0 ANESTHESIA OF SKIN 11/04/2019 [facility], PORTIA Mazariegos Ot Z87.898 PERSONAL HISTORY OF OTHER SPECIFIED COND 11/10/2019 [facility], PORTIA Mazariegos Ot I10 ESSENTIAL (PRIMARY) HYPERTENSION 11/10/2019 [facility], PORTIA Mazariegos Ot I25.10 ATHSCL HEART DISEASE OF [place] CORONARY 11/10/2019 [facility], PORTIA Mazariegos Ot I73.9 PERIPHERAL VASCULAR DISEASE, UNSPECIFIED 11/10/2019 [facility], PORTIA Mazariegos Ot R06.09 OTHER FORMS OF DYSPNEA 11/10/2019 [facility] PORTIA RHODES Ot R20.0 ANESTHESIA OF SKIN 11/10/2019 [facility], PORTIA Mazariegos Ot Z72.0 TOBACCO USE 11/15/2019 [facility], PORTIA Mazariegos Ot I10 ESSENTIAL (PRIMARY) HYPERTENSION 11/15/2019 [facility], PORTIA Mazariegos Ot I25.10 ATHSCL HEART DISEASE OF [place] CORONARY 11/15/2019 [facility], PORTIA Mazariegos Ot I73.9 PERIPHERAL VASCULAR DISEASE, UNSPECIFIED 11/15/2019 [facility] PORTIA RHODES Ot R06.09 OTHER FORMS OF DYSPNEA 11/15/2019 [facility], PORTIA Mazariegos Ot R20.0 ANESTHESIA OF SKIN 11/15/2019 [facility], PORTIA K Ot Z72.0 TOBACCO USE 11/22/2019 [facility], PORTIA K Ot I10 ESSENTIAL (PRIMARY) HYPERTENSION 11/22/2019 [facility], PORTIA K Ot I25.10 ATHSCL HEART DISEASE OF [place] CORONARY 11/22/2019 [facility], PORTIA K Ot I44.7 LEFT BUNDLE-BRANCH BLOCK, UNSPECIFIED 11/22/2019 [facility], PORTIA K Ot 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 11/22/2019 [facility], PORTIA K Ot R20.0 ANESTHESIA OF SKIN 11/22/2019 [facility], PORTIA K Ot Z87.898 PERSONAL HISTORY OF OTHER SPECIFIED COND 12/07/2019 [facility], PORTIA K Ot I10 ESSENTIAL (PRIMARY) HYPERTENSION 12/07/2019 [facility], PORTIA K Ot I25.10 ATHSCL HEART DISEASE OF [place] CORONARY 12/07/2019 [facility], PORTIA K Ot I73.9 PERIPHERAL VASCULAR DISEASE, UNSPECIFIED 12/07/2019 [facility], PORTIA K Ot R06.09 OTHER FORMS OF DYSPNEA 12/07/2019 [facility], PORTIA K Ot R20.0 ANESTHESIA OF SKIN 12/07/2019 [facility], PORTIA K Ot Z72.0 TOBACCO USE 12/08/2019 [facility], PORTIA K Ot I10 ESSENTIAL (PRIMARY) HYPERTENSION 12/08/2019 [facility], PORTIA K Ot I25.10 ATHSCL HEART DISEASE OF [place] CORONARY 12/08/2019 [facility], PORTIA K Ot I44.7 LEFT BUNDLE-BRANCH BLOCK, UNSPECIFIED 12/08/2019 [facility], PORTIA K Ot 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 12/08/2019 [facility], PORTIA K Ot R20.0 ANESTHESIA OF SKIN 12/08/2019 [facility], PORTIA K Ot Z87.898 PERSONAL HISTORY OF OTHER SPECIFIED COND 12/12/2019 [facility], PORTIA K Ot I10 ESSENTIAL (PRIMARY) HYPERTENSION 12/12/2019 [facility], PORTIA K Ot I25.10 ATHSCL HEART DISEASE OF [place] CORONARY 12/12/2019 [facility], PORTIA K Ot I73.9 PERIPHERAL VASCULAR DISEASE, UNSPECIFIED 12/12/2019 [facility], PORTIA K Ot R06.09 OTHER FORMS OF DYSPNEA 12/12/2019 [facility], PORTIA K Ot R20.0 ANESTHESIA OF SKIN 12/12/2019 [facility], PORTIA K Ot Z72.0 TOBACCO USE 12/13/2019 [facility], PORTIA K Ot 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 12/13/2019 [facility], PORTIA K Ot I10 ESSENTIAL (PRIMARY) HYPERTENSION 12/13/2019 [facility], PORTIA K Ot I25.10 ATHSCL HEART DISEASE OF [place] CORONARY 12/13/2019 [facility], PORTIA K Ot I73.9 PERIPHERAL VASCULAR DISEASE, UNSPECIFIED 12/13/2019 [facility], PORTIA K Ot R06.09 OTHER FORMS OF DYSPNEA 12/13/2019 [facility], PORTIA K Ot R20.0 ANESTHESIA OF SKIN 12/13/2019 [facility], PORTIA K Ot Z72.0 TOBACCO USE 12/21/2019 [facility], PORTIA K Ot 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 12/21/2019 [facility], PORTIA K Ot I10 ESSENTIAL (PRIMARY) HYPERTENSION 12/21/2019 [facility], PORTIA K Ot I25.10 ATHSCL HEART DISEASE OF [place] CORONARY 12/21/2019 [facility], PORTIA K Ot I73.9 PERIPHERAL VASCULAR DISEASE, UNSPECIFIED 12/21/2019 [facility], PORTIA K Ot R06.09 OTHER FORMS OF DYSPNEA 12/21/2019 [facility], PORTIA K Ot R20.0 ANESTHESIA OF SKIN 12/21/2019 [facility], PORTIA K Ot Z72.0 TOBACCO USE 01/02/2020 [facility], PORTIA K Ot I10 ESSENTIAL (PRIMARY) HYPERTENSION 01/02/2020 PORTIA ANDRADE Ot I25.10 ATHSCL HEART DISEASE OF [place] CORONARY 01/02/2020 PORTIA ANDRADE Ot I44.7 LEFT BUNDLE-BRANCH BLOCK, UNSPECIFIED 01/02/2020 PORTIA ANDRADE Ot 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 01/02/2020 PORTIA ANDRADE Ot R20.0 ANESTHESIA OF SKIN 01/02/2020 PORTIA ANDRADE Ot Z87.898 PERSONAL HISTORY OF OTHER SPECIFIED COND Procedures Code Description Performed By Per formed On [id number] RE PLACE OF L KNEE JT WITH SYNTH SUB, ROSSY 04/15/2016 Results Test Result Range Automated blood complete blood count (he mogram) panel - 09/02/16 10:35 Blood leukocytes automated count (number/volume) 8.1 10*3/uL 4.3-11.0 Blood erythrocytes automated count (number/volume) 5.64 10*6/uL 4.35-5.85 Venous blood hemoglobin measurement (mass/volume) 16.4 g/dL 13.3-17.7 Blood hematocrit (volume fraction) 49 % 40-54 Automated erythrocyte mean corpuscular volume 87 [ foz_us] 80-99 Automated erythrocyte mean corpuscular h emoglobin (mass per erythrocyte) 29 pg 25-34 Automated erythrocyte mean corpuscular h emoglobin concentration measurement (mass/volume) 33 g/dL 32-36 Automated erythrocyte distribution width ratio 13. 3 % 10.0- 14.5 Automated blood platelet count (count/volume) 177 10*3/uL 130-400 Automated blood platelet mean volume measurement 10.3 [foz_us] 7.4-10.4 PT panel in platelet poor plasma by coag ulation assay - 09/02/16 10:35 Prothrombin time (PT) in platelet poor plasma by coagu lation assay 12.7 s 12.2-14.7 INR in platelet poor plasma or blood by coagulation as say 1.0 0.8-1.4 Activated partial thromboplastin time (a PTT) in platelet poor plasma bycoagulation assay - 09/02/16 10:35 Activated partial thromboplastin time (a PTT) in platelet poor plasma bycoagulation assay 27 s 24-35 Comprehensive metabolic panel - 09/02/16 10:35 Serum or plasma sodium measurement (moles/volume) 140 mmol/L 135-145 Serum or plasma potassium measurement (moles/volume) 3.7 mmol/L 3.6-5.0 Serum or plasma chloride measurement (moles/volume) 105 mmol/L 98-107 Carbon dioxide 28 mmol/L 21-32 Serum or plasma anion gap determination (moles/volume) 7 mmol/L 5-14 Serum or plasma urea nitrogen measurement (mass/volume ) 15 mg/dL 7-18 Serum or plasma creatinine measurement (mass/volume) 1.15 mg/dL 0.60-1.30 Serum or plasma urea nitrogen/creatinine mass ratio 13 NRG Serum or plasma creatinine measurement w ith calculation of estimated glomerular filtration rate 60 NRG Serum or plasma glucose measurement (mass/volume) 103 mg/dL 70-105 Serum or plasma calcium measurement (mass/volume) 9.0 mg/dL 8.5-10.1 Serum or plasma total bilirubin measurement (mass/volu me) 0.8 mg/dL 0.1-1.0 Serum or plasma alkaline phosphatase ronal surement (enzymatic activity/volume) 75 U/L 40-136 Serum or plasma aspartate aminotransfera se measurement (enzymatic activity/volume) 22 U/L 5-34 Serum or plasma alanine aminotransferase measurement (enzymatic activity/volume) 24 U/L 0-55 Serum or plasma protein measurement (mass/volume) 7.3 g/dL 6.4-8.2 Serum or plasma albumin measurement (mass/volume) 4.1 g/dL 3.2-4.5 Lipid 1996 panel - 09/02/16 10:35 Serum or plasma triglyceride measurement (mass/volume) 99 mg/dL <150 Serum or plasma cholesterol measurement (mass/volume) 159 mg/dL < 200 Serum or plasma cholesterol in HDL measurement (mass/v olume) 39 mg/dL 40-60 Cholesterol in LDL [mass/volume] in serum or plasma by direct assay 108 mg/dL 1-129 Serum or plasma cholesterol in VLDL measurement (mass/ volume) 20 mg/dL 5-40 Methicillin resistant Staphylococcus aur eus (MRSA) screening culture - 09/02/16 10:35 Methicillin resistant Staphylococcus aureus (MRSA) scr eening culture NEG NRG Automated blood complete blood count (he mogram) panel - 09/03/16 05:47 Blood leukocytes automated count (number/volume) 6.8 10*3/uL 4.3-11.0 Blood erythrocytes automated count (number/volume) 5.34 10*6/uL 4.35-5.85 Venous blood hemoglobin measurement (mass/volume) 15.6 g/dL 13.3-17.7 Blood hematocrit (volume fraction) 46 % 40-54 Automated erythrocyte mean corpuscular volume 87 [ foz_us] 80-99 Automated erythrocyte mean corpuscular h emoglobin (mass per erythrocyte) 29 pg 25-34 Automated erythrocyte mean corpuscular h emoglobin concentration measurement (mass/volume) 34 g/dL 32-36 Automated erythrocyte distribution width ratio 13. 3 % 10.0- 14.5 Automated blood platelet count (count/volume) 162 10*3/uL 130-400 Automated blood platelet mean volume measurement 10.4 [foz_us] 7.4-10.4 Whole blood basic metabolic panel - 04/12 05:47 Serum or plasma sodium measurement (moles/volume) 140 mmol/L 135-145 Serum or plasma potassium measurement (moles/volume) 4.0 mmol/L 3.6-5.0 Serum or plasma chloride measurement (moles/volume) 106 mmol/L 98-107 Carbon dioxide 25 mmol/L 21-32 Serum or plasma anion gap determination (moles/volume) 9 mmol/L 5-14 Serum or plasma urea nitrogen measurement (mass/volume ) 14 mg/dL 7-18 Serum or plasma creatinine measurement (mass/volume) 0.90 mg/dL 0.60-1.30 Serum or plasma urea nitrogen/creatinine mass ratio 16 NRG Serum or plasma creatinine measurement w ith calculation of estimated glomerular filtration rate > NRG Serum or plasma glucose measurement (mass/volume) 89 mg/dL 70-105 Serum or plasma calcium measurement (mass/volume) 8.8 mg/dL 8.5-10.1 Comprehensive metabolic panel - 10/13/16 05:20 Serum or plasma sodium measurement (moles/volume) 141 mmol/L 135-145 Serum or plasma potassium measurement (moles/volume) 4.1 mmol/L 3.6-5.0 Serum or plasma chloride measurement (moles/volume) 106 mmol/L 98-107 Carbon dioxide 27 mmol/L 21-32 Serum or plasma anion gap determination (moles/volume) 8 mmol/L 5-14 Serum or plasma urea nitrogen measurement (mass/volume ) 17 mg/dL 7-18 Serum or plasma creatinine measurement (mass/volume) 1.15 mg/dL 0.60-1.30 Serum or plasma urea nitrogen/creatinine mass ratio 15 NRG Serum or plasma creatinine measurement w ith calculation of estimated glomerular filtration rate 60 NRG Serum or plasma glucose measurement (mass/volume) 110 mg/dL 70-105 Serum or plasma calcium measurement (mass/volume) 8.8 mg/dL 8.5-10.1 Serum or plasma total bilirubin measurement (mass/volu me) 0.7 mg/dL 0.1-1.0 Serum or plasma alkaline phosphatase ronal surement (enzymatic activity/volume) 76 U/L 40-136 Serum or plasma aspartate aminotransfera se measurement (enzymatic activity/volume) 26 U/L 5-34 Serum or plasma alanine aminotransferase measurement (enzymatic activity/volume) 38 U/L 0-55 Serum or plasma protein measurement (mass/volume) 6.8 g/dL 6.4-8.2 Serum or plasma albumin measurement (mass/volume) 3.7 g/dL 3.2-4.5 Lipid 1996 panel - 10/13/16 05:20 Serum or plasma triglyceride measurement (mass/volume) 72 mg/dL <150 Serum or plasma cholesterol measurement (mass/volume) 96 mg/dL < 200 Serum or plasma cholesterol in HDL measurement (mass/v olume) 34 mg/dL 40-60 Cholesterol in LDL [mass/volume] in serum or plasma by direct assay 49 mg/dL 1-129 Serum or plasma cholesterol in VLDL measurement (mass/ volume) 14 mg/dL 5-40 [id number] - 01/31/17 12:40 Serum or plasma urea nitrogen measurement (mass/volume ) 16 mg/dL 7-18 Serum or plasma creatinine measurement (mass/volume) 1.13 mg/dL 0.60-1.30 Serum or plasma urea nitrogen/creatinine mass ratio 14 NRG Serum or plasma creatinine measurement w ith calculation of estimated glomerular filtration rate > NRG Complete blood count (CBC) with automate d white blood cell (WBC) differential - 05/11/17 17:54 Blood leukocytes automated count (number/volume) 6.2 10*3/uL 4.3-11.0 Blood erythrocytes automated count (number/volume) 5.11 10*6/uL 4.35-5.85 Venous blood hemoglobin measurement (mass/volume) 14.8 g/dL 13.3-17.7 Blood hematocrit (volume fraction) 45 % 40-54 Automated erythrocyte mean corpuscular volume 88 [ foz_us] 80-99 Automated erythrocyte mean corpuscular h emoglobin (mass per erythrocyte) 29 pg 25-34 Automated erythrocyte mean corpuscular h emoglobin concentration measurement (mass/volume) 33 g/dL 32-36 Automated erythrocyte distribution width ratio 13. 4 % 10.0- 14.5 Automated blood platelet count (count/volume) 152 10*3/uL 130-400 Automated blood platelet mean volume measurement 10.4 [foz_us] 7.4-10.4 Automated blood neutrophils/100 leukocytes 68 % 42-75 Automated blood lymphocytes/100 leukocytes 15 % 12-44 Blood monocytes/100 leukocytes 12 % 0-12 Automated blood eosinophils/100 leukocytes 5 % 0-10 Automated blood basophils/100 leukocytes 0 % 0-10 Blood neutrophils automated count (number/volume) 4.2 10*3 1.8-7.8 Blood lymphocytes automated count (number/volume) 0.9 10*3 1.0-4.0 Blood monocytes automated count (number/volume) 0. 8 10*3 0.0-1.0 Automated eosinophil count 0.3 10*3/uL 0 .0-0.3 Automated blood basophil count (count/volume) 0.0 10*3/uL 0.0-0.1 [id number] - 05/21/17 10:00 Serum or plasma urea nitrogen measurement (mass/volume ) 15 mg/dL 7-18 Serum or plasma creatinine measurement (mass/volume) 1.02 mg/dL 0.60-1.30 Serum or plasma urea nitrogen/creatinine mass ratio 15 NRG Serum or plasma creatinine measurement w ith calculation of estimated glomerular filtration rate > NRG Comprehensive metabolic panel - 08/20/17 20:50 Serum or plasma sodium measurement (moles/volume) 140 mmol/L 135-145 Serum or plasma potassium measurement (moles/volume) 3.8 mmol/L 3.6-5.0 Serum or plasma chloride measurement (moles/volume) 106 mmol/L 98-107 Carbon dioxide 23 mmol/L 21-32 Serum or plasma anion gap determination (moles/volume) 11 mmol/L 5-14 Serum or plasma urea nitrogen measurement (mass/volume ) 20 mg/dL 7-18 Serum or plasma creatinine measurement (mass/volume) 1.11 mg/dL 0.60-1.30 Serum or plasma urea nitrogen/creatinine mass ratio 18 NRG Serum or plasma creatinine measurement w ith calculation of estimated glomerular filtration rate > NRG Serum or plasma glucose measurement (mass/volume) 146 mg/dL 70-105 Serum or plasma calcium measurement (mass/volume) 8.9 mg/dL 8.5-10.1 Serum or plasma total bilirubin measurement (mass/volu me) 0.5 mg/dL 0.1-1.0 Serum or plasma alkaline phosphatase ronal surement (enzymatic activity/volume) 67 U/L 40-136 Serum or plasma aspartate aminotransfera se measurement (enzymatic activity/volume) 27 U/L 5-34 Serum or plasma alanine aminotransferase measurement (enzymatic activity/volume) 31 U/L 0-55 Serum or plasma protein measurement (mass/volume) 6.9 g/dL 6.4-8.2 Serum or plasma albumin measurement (mass/volume) 3.6 g/dL 3.2-4.5 Magnesium - 08/20/17 20:50 Magnesium 2.1 mg/dL 1.8-2.4 Complete blood count (CBC) with automate d white blood cell (WBC) differential - 08/20/17 20:50 Blood leukocytes automated count (number/volume) 6.0 10*3/uL 4.3-11.0 Blood erythrocytes automated count (number/volume) 4.45 10*6/uL 4.35-5.85 Venous blood hemoglobin measurement (mass/volume) 13.2 g/dL 13.3-17.7 Blood hematocrit (volume fraction) 39 % 40-54 Automated erythrocyte mean corpuscular volume 87 [ foz_us] 80-99 Automated erythrocyte mean corpuscular h emoglobin (mass per erythrocyte) 30 pg 25-34 Automated erythrocyte mean corpuscular h emoglobin concentration measurement (mass/volume) 34 g/dL 32-36 Automated erythrocyte distribution width ratio 12. 5 % 10.0- 14.5 Automated blood platelet count (count/volume) 150 10*3/uL 130-400 Automated blood platelet mean volume measurement 11.2 [foz_us] 7.4-10.4 Automated blood neutrophils/100 leukocytes 53 % 42-75 Automated blood lymphocytes/100 leukocytes 20 % 12-44 Blood monocytes/100 leukocytes 14 % 0-12 Automated blood eosinophils/100 leukocytes 11 % 0-10 Automated blood basophils/100 leukocytes 1 % 0-10 Blood neutrophils automated count (number/volume) 3.2 10*3 1.8-7.8 Blood lymphocytes automated count (number/volume) 1.2 10*3 1.0-4.0 Blood monocytes automated count (number/volume) 0. 9 10*3 0.0-1.0 Automated eosinophil count 0.7 10*3/uL 0 .0-0.3 Automated blood basophil count (count/volume) 0.0 10*3/uL 0.0-0.1 Serum or plasma lithium measurement (mol es/volume) - 08/20/17 20:50 BNP level 87.3 pg/mL <100.0 Methicillin resistant Staphylococcus aur eus (MRSA) screening culture - 02/25/18 13:41 Methicillin resistant Staphylococcus aureus (MRSA) scr eening culture NEG NRG PT panel in platelet poor plasma by coag ulation assay - 03/23/18 10:37 Prothrombin time (PT) in platelet poor plasma by coagu lation assay 14.0 s 12.2-14.7 INR in platelet poor plasma or blood by coagulation as say 1.1 0.8-1.4 Activated partial thromboplastin time (a PTT) in platelet poor plasma bycoagulation assay - 03/23/18 10:37 Activated partial thromboplastin time (a PTT) in platelet poor plasma bycoagulation assay 26 s 24-35 Automated blood complete blood count (he mogram) panel - 03/23/18 10:37 Blood leukocytes automated count (number/volume) 6.9 10*3/uL 4.3-11.0 Blood erythrocytes automated count (number/volume) 4.31 10*6/uL 4.35-5.85 Venous blood hemoglobin measurement (mass/volume) 13.2 g/dL 13.3-17.7 Blood hematocrit (volume fraction) 38 % 40-54 Automated erythrocyte mean corpuscular volume 89 [ foz_us] 80-99 Automated erythrocyte mean corpuscular h emoglobin (mass per erythrocyte) 31 pg 25-34 Automated erythrocyte mean corpuscular h emoglobin concentration measurement (mass/volume) 35 g/dL 32-36 Automated erythrocyte distribution width ratio 12. 6 % 10.0- 14.5 Automated blood platelet count (count/volume) 150 10*3/uL 130-400 Automated blood platelet mean volume measurement 10.0 [foz_us] 7.4-10.4 Comprehensive metabolic panel - 03/23/18 10:37 Serum or plasma sodium measurement (moles/volume) 142 mmol/L 135-145 Serum or plasma potassium measurement (moles/volume) 4.2 mmol/L 3.6-5.0 Serum or plasma chloride measurement (moles/volume) 111 mmol/L 98-107 Carbon dioxide 22 mmol/L 21-32 Serum or plasma anion gap determination (moles/volume) 9 mmol/L 5-14 Serum or plasma urea nitrogen measurement (mass/volume ) 14 mg/dL 7-18 Serum or plasma creatinine measurement (mass/volume) 0.97 mg/dL 0.60-1.30 Serum or plasma urea nitrogen/creatinine mass ratio 14 NRG Serum or plasma creatinine measurement w ith calculation of estimated glomerular filtration rate > NRG Serum or plasma glucose measurement (mass/volume) 106 mg/dL 70-105 Serum or plasma calcium measurement (mass/volume) 9.3 mg/dL 8.5-10.1 Serum or plasma total bilirubin measurement (mass/volu me) 0.7 mg/dL 0.1-1.0 Serum or plasma alkaline phosphatase ronal surement (enzymatic activity/volume) 44 U/L 40-136 Serum or plasma aspartate aminotransfera se measurement (enzymatic activity/volume) 21 U/L 5-34 Serum or plasma alanine aminotransferase measurement (enzymatic activity/volume) 24 U/L 0-55 Serum or plasma protein measurement (mass/volume) 6.6 g/dL 6.4-8.2 Serum or plasma albumin measurement (mass/volume) 3.7 g/dL 3.2-4.5 Lipid 1996 panel - 03/23/18 10:37 Serum or plasma triglyceride measurement (mass/volume) 100 mg/dL <150 Serum or plasma cholesterol measurement (mass/volume) 95 mg/dL < 200 Serum or plasma cholesterol in HDL measurement (mass/v olume) 27 mg/dL 40-60 Cholesterol in LDL [mass/volume] in serum or plasma by direct assay 54 mg/dL 1-129 Serum or plasma cholesterol in VLDL measurement (mass/ volume) 20 mg/dL 5-40 Methicillin resistant Staphylococcus aur eus (MRSA) screening culture - 03/23/18 10:37 Methicillin resistant Staphylococcus aureus (MRSA) scr eening culture NEG NRG Whole blood basic metabolic panel - 06/29 06/15 11:50 Serum or plasma sodium measurement (moles/volume) 142 mmol/L 135-145 Serum or plasma potassium measurement (moles/volume) 3.8 mmol/L 3.6-5.0 Serum or plasma chloride measurement (moles/volume) 106 mmol/L 98-107 Carbon dioxide 27 mmol/L 21-32 Serum or plasma anion gap determination (moles/volume) 9 mmol/L 5-14 Serum or plasma urea nitrogen measurement (mass/volume ) 15 mg/dL 7-18 Serum or plasma creatinine measurement (mass/volume) 1.02 mg/dL 0.60-1.30 Serum or plasma urea nitrogen/creatinine mass ratio 15 NRG Serum or plasma creatinine measurement w ith calculation of estimated glomerular filtration rate > NRG Serum or plasma glucose measurement (mass/volume) 119 mg/dL 70-105 Serum or plasma calcium measurement (mass/volume) 9.2 mg/dL 8.5-10.1 Encounters ACCT No. Visit Date/Time Discharge Status Pt. Type Provider Facility Loc./Unit Complaint [id number] 10/04/2019 12:30:00 00:01:00 DIS Outpatient REMY ANDRADE [facility] CARD CAD [id number] 11/22/2019 12:42:00 23:59:59 CLS Outpatient REMY ANDRADE [facility] CARD CAD,FACIAL NUMBNESS,DYSPNEA,HYPERTENSION [id number] 11/09/2019 12:21:00 23:59:59 CLS Outpatient REMY ANDRADE [facility] CARD CAD,FACIAL NUMBNESS,OHARA,HTN [id number] 05/03/2019 10:52:00 23:59:59 CLS Outpatient ERIC CORDOVA MD [facility] CARD PROSTATE CANCER [id number] 07/26/2018 10:54:00 018 23:59:59 CLS Outpatient ISAK VALLADARES MD [facility] CARD PROSTATE CA [id number] 06/29/2018 14:18:00 018 23:59:59 CLS Preadmit BLAINE ZULETA, FRED Carnes [facility] RAD PROSTATE CA [id number] 04/16/2018 18:12:00 018 19:54:00 DIS Emergency EDGAR , TENISHA Mazariegos [facility] ER LEFT SIDE FACE PAIN [id number] 03/23/2018 09:52:00 018 20:15:00 DIS Outpatient GREGOR ZULETA FACC, LAMAR MILLERP CC DS [facility] CATH CHEST PAIN ON EXERTION,CAD,CAROTID ARTERY NARROWIN [id number] 03/03/2018 06:45:00 018 10:40:00 DIS Outpatient ERICKA DIAZ MD [facility] SDC RT CARPAL TUNNEL SYNDR OME [id number] 02/25/2018 13:20:00 018 13:55:00 DIS Outpatient ERICKA DIAZ MD [facility] PREOP RIGHT CARPAL TUNNEL [id number] 09/17/2017 09:14:00 017 23:59:59 CLS Outpatient GREGOR ZULETA FACC, LAMAR MILLERP CC DS [facility] CARD I25.10 CAD [id number] 09/15/2017 07:29:00 017 23:59:59 CLS Outpatient GREGOR ZULETA FACC, LAMAR FACP CC DS [facility] CARD I25.10 CAD [id number] 08/20/2017 20:00:00 017 22:10:00 DIS Emergency AIDAN CUEVA MD [facility] ER SWELLING IN LEG S AND ANKLES [id number] 2017 09:45:00 017 23:59:59 CLS Outpatient ERIC CORDOVA MD [facility] CARD PROSTATE CA [id number] 05/11/2017 17:05:00 017 18:24:00 DIS Emergency ELLY FAM APRN [facility] ER RECTAL BLEEDING [id number] 01/31/2017 12:31:00 23:59:59 CLS Outpatient TAMARALISA Trice OD [facility] RAD AION [id number] 10/14/2016 12:12:00 017 23:59:59 CLS Outpatient GREGOR ZULETA FACC, LAMAR MIRZA CC DS [facility] RAD CAD,RT LEG CLAUDICATION [id number] 10/13/2016 05:19:00 23:59:59 CLS Outpatient MANDEEP SNIDER [facility] LAB [id number] 09/02/2016 09:57:00 10:05:00 DIS Outpatient MANDEEP SNIDER [facility] CATH CP ON EXERTION, CAD,CAROTID ARTERY NARROWING,HTN [id number] 07/01/2016 09:30:00 016 23:59:59 CLS Preadmit GERALD JOHNSTON DO [facility] PREOP LEFT KNEE OSTEOARTHRITI S [id number] 04/01/2016 09:16:00 016 00:01:00 DIS Outpatient GERALD JOHNSTON DO [facility] PREOP LEFT KNEE OSTEO ARTHRITIS [id number] 05/22/2016 13:26:00 016 14:05:00 DIS Outpatient GERALD JOHNSTON DO [facility] REHAB S/P L TKR [id number] 05/04/2016 14:12:00 016 15:15:00 DIS Emergency KIRSTEN ZULETA, NICOLA Mazariegos [facility] ER L ANKLE PAIN [id number] 04/15/2016 05:58:00 15:15:00 DIS Inpatient GERALD JOHNSTON DO [facility] 4TH LEFT KNEE OSTEOARTHRIT IS [id number] 04/01/2016 10:00:00 016 23:59:59 CLS Preadmit GERALD JOHNSTON DO [facility] PREOP KNEE REPLACEMENT [id number] 01/01/2016 09:55:00 00:01:00 DIS Outpatient GERALD JOHNSTON DO [facility] PREOP KNEE REPLACEMEN T [id number] 02/21/2016 10:26:00 016 12:03:00 DIS Outpatient GIANFRANCO ALEXANDER MD [facility] REHAB GAIT TRAINING [id number] 04/08/2015 09:50:00 10:38:00 DIS Emergency NICOLA CURTIS MD [facility] ER POSS SPIDER BITE [id number] 04/02/2015 08:41:00 23:59:59 CLS Outpatient MANDEEP SNIDER [facility] RAD GROIN SWELLING [id number] 03/20/2015 08:16:00 015 10:30:00 DIS Outpatient GREGOR ZULETA FACC, LAMAR MIRZA CC DS [facility] CATH CHEST PAIN HTN [id number] 02/09/2015 08:27:00 23:59:59 CLS Outpatient TEE COLINDRES MD [facility] CARD DDD CERVICAL [id number] 01/15/2015 10:54:00 23:59:59 CLS Outpatient PERLA RING MD [facility] RAD RADICULOPATHY [id number] 03/21/2020 13:00:00 P EN Preadmit STACIE VICTORIA MD [facility] CATH CP,CAD,LBBB [id number] 03/19/2020 06:50:[address] Outpatient STACIE VICTORIA MD [facility] LABNPT [id number] 01/15/2015 10:54:00 Document Registration [id number] 01/15/2015 10:54:00 Document Registration [id number] 11/16/2014 10:23:00 Document Registration [id number] 11/24/2012 10:14:00 Document Registration [id number] 11/19/2012 12:51:00 Document Registration [id number] 2012 10:14:00 Document Registration [id number] 07/11/2010 09:22:00 Document Registration [id number] 02/28/2010 12:54:00 Document Registration
[2020-03-21 11:38] LABS: ALBUMIN 3.8 GM/DL (3.2-4.5); BILIRUBIN,TOTAL 0.5 MG/DL (0.1-1.0); CALCIUM 8.9 MG/DL (8.5-10.1); CREATININE SERUM 1.61 MG/DL (0.60-1.30); POTASSIUM 4.5 MMOL/L (3.6-5.0)
[2020-03-21] MEDS ORDERED: VITA1CAP PO (12:27)
[2020-03-21] MEDS ORDERED: MELO15TA39 PO (12:27)
[2020-03-21] MEDS ORDERED: TMSL.4C PO (12:27)
[2020-03-21] MEDS ORDERED: POTA10TA36 PO (12:27)
[2020-03-21] MEDS ORDERED: LOSA50TA63 PO (12:27)
[2020-03-21] MEDS ORDERED: ZOLP5TAB7 PO (12:27)
[2020-03-21] MEDS ORDERED: fentaNYL INJECTION 100 MCG/2 ML AMP ONE (13:03)
[2020-03-21] MEDS ORDERED: MIDAZOLAM 5 MG/5 ML (VERSED) VIAL ONE (13:03)
--- NOTE | 2020-03-21 13:29 | NUR ---
SPOKE WITH PT AND HIS AND CALLED [facility] TO COMPLETE THE MED REC POTASSIUM CHL 10MEQ DIRECTIONS ARE 1 TAB BID BUT THE PT ONLY TAKES 1 TAB AT DAILY PRN THE FOLLOWING ARE FILL DATES: 11-21-2019 POTASSIUM CHLORIDE 10 MEQ #180/180DS 11-21-05 ZOLPIDEM 5MG #45 01-04-2020 CLOPIDOGREL 75MG #90/90DS 01-25-2020 FUROSEMIDE 40MG #90/90DS 02-02-2020 TAMSULOSIN 0.4MG #90/90DS 02-03-2020 SIMVASTATIN 40MG #90/90DS 02-10-2020 LOSARTAN 50MG #90/90DS 02-22-2020 METOPROLOL SUCC 100MG #90/90DS 03-06-2020 LEOXICAM 15MG #90/90DS OTC: ASPIRIN 81 VIT B COMPLEX
--- NOTE | 2020-03-21 13:41 | Cardiac Procedure Note-CS/ASA ---
Pre-Procedure Note Pre-Op Procedure Note H&P Reviewed The H&P was reviewed, patient examined and no changes noted. Date H&P Reviewed: Mar 21, 2020 Time H&P Reviewed: 13:41 Conscious Sedation Pre-Proced Time 13:41 ASA Score 3 For ASA 3 and 4: Consider anesthesia and medical clearance. Also, for patients with a history of failed moderate sedation consider anesthesia. Airway Lungs Heart ASA score ASA 1: a normal healthy patient ASA 2: a patient with a mild systemic disease (mid diabetes, controlled hypertension, obesity X ASA 3: a patient with a severe systemic disease that limits activity (angina, COPD, prior Myocardial infarction) ASA 4: a patient with an incapacitating disease that is a constant threat to life (CHF, renal failure) ASA 5: a moribund patient not expected to survive 24 hrs. (ruptured aneurysm) ASA 6: a declared brain- patient whose organs are being harvested. For emergent operations, add the letter E after the classification Mallampati Classification Grade 3 Sedation Plan Analgesia, Amnesia, Plan communicated to team members, Discussed options with patient/fam, Discussed risks with patient/fam The patient is an appropriate candidate to undergo the planned procedure, sedation, and anesthesia. The patient immediately re-assessed prior to indication. STACIE VICTORIA MD Mar 21, 2020 13:41
--- NOTE | 2020-03-21 13:44 | Discharge Inst-Post CATH ---
Discharge Inst-CATH/EP Problems Reviewed?: Yes Post Cardiac Cath/EP D/C Inst Follow Up/Plan Appointment with Dr. VICTORIA's office in 2-4 weeks <b>CARDIAC CATH/EP PROCEDURE DISCHARGE INSTRUCTIONS</b> ACTIVITY * Go Home directly and rest. * Limit activity of the leg (or wrist if it was used) for 7 days including aerobics, swimming, jogging, bicycling, etc. * Restrict stair-climbing for 7 days if possible, if not, climb up with your non-cath leg, then bring together on the same step. * Avoid lifting, pushing, pulling or excessive movement of the affected extremity for 7 days. * Customary sexual activity may be resumed after 2 days-use caution not to use a position that strains or causes pain to the affected extremity. * No driving for 24 hours. * NO SMOKING. * Avoid straining for bowel movements for 7 days. * Gentle walking on level ground is allowed. * Returning to work will depend on the type of procedure and the results. Your doctor will discuss this with you. CALL YOUR DOCTOR FOR ANY OF THE FOLLOWING: *If bleeding from the puncture site occurs- Apply gentle pressure to site with clean cloth and call your doctor or EMS. * If a knot or lump forms under the skin, increases in size, or causes pain. * If bruising appears to be worsening or moving further down your leg instead of disappearing. * Temperature above 101 F. CARE OF YOUR GROIN INCISION; * Bruising or purple discoloration of the skin near the puncture site is common. * You may shower only, no bathtub bathing for 5 days. Be careful to avoid slipping as your leg may feel stiff. * If a closure device was used on your femoral artery, please see the attached guide regarding care of the device and your leg. * Leave dressing on FOR 24 hours. CARE OF YOUR WRIST INCISION; * Bruising or purple discoloration of the skin near the puncture site is common. * You may shower. * DO NOT submerge wrist. * Leave dressing on FOR 24 hours. STACIE VICTORIA MD Mar 21, 2020 13:44
[2020-03-21] MEDS ORDERED: PATIENT MAY USE OWN MEDS, ALL PO SCH (13:45)
--- NOTE | 2020-03-21 13:48 | Cardiac Cath Report ---
Cardiac Cath Report Physician (s)/Sales Rep (s) Physician STACIE VICTORIA MD Pre-Procedure Diagnosis Pre-Procedure Diagnosis: Chest pain Post-Procedure Note Procedure Start Date: Mar 21, 2020 Name of Procedure: Left heart catheterization Left ventriculogram Findings/Procedure Note PROCEDURE NOTE: 89 years old gentleman with history of coronary artery disease multiple intervention in the past, multiple small vessel disease treated medically, has been having more frequent episodes of chest pain. Knowing that his baseline will be abnormal stress Test I decided to proceed with cardiac catheterization possible PTCA. After explaining the procedure to the patient, all pros and cons were explained, all questions were answered. The patient signed the consent and then he was placed on the cardiac catheterization laboratory. Groin was prepped SL fashion local anesthesia was used. Sheath placed in the right femoral artery. Viet right and left catheter were used to access the coronary system. Pigtail was used to access the left ventricular cavity. Left ventriculogram was done At the end of the procedure the sheath was removed. Closure device was used FINDINGS: Hemodynamics LV 140/16, end-diastolic pressure 16 Aorta 140/49 mean of 80 ANATOMY: Left Main is free of obstructive disease Left Anterior Descending has multiple stents at the proximal, mid and distal and they are all patent. Moderate disease beyond the stent distally, small vessel disease Left Circumflex has mild to moderate disease area patent stent in the mid circumflex artery, obtuse marginal branch has severe ostial stenosis that did not change compared to baseline Right Coronory Artery has moderate disease diffusely. Nonobstructive disease LV Gram was done showing normal left ventricular size, estimated ejection fraction 50 percent CONCLUSION: 1. Patent multiple stents in the LAD, a stent in the circumflex artery and moderate small vessel disease at the distal LAD and circumflex artery 2. Moderate to severe ostial obtuse marginal artery stenosis, did not change compared to baseline in the study of 2016 and 2018 3. Mild to moderate disease in the right coronary artery, nonobstructive disease DISCUSSION AND RECOMMENDATION: Continue with medical therapy no intervention is needed Anesthesia Type: Conscious Sedation Estimated blood loss (mL): 25 ml Contrast Amount: 32 ml Total Radiation Dose: 408 mGy Post-Procedure Diagnosis Post-operative diagnosis: Chest pain Coronary artery disease Hypertension Hyperlipidemia STACIE VICTORIA MD Mar 21, 2020 13:48
[2020-03-21] MEDS ORDERED: ACETAMINOPHEN 325 MG TABLET ONE (15:24)
[2020-03-21] MEDS ORDERED: ACETAMINOPHEN 325 MG TABLET PO ONE (15:30)
== END 2020-03-21 18:00 | disposition home or self-care (01) ==
LOC: CATH 10:48 → SDC 13:59 → CATH 18:00
PROVIDERS: ATTEND Internal Medicine Cardiovascular Disease
DX: I25.10 Atherosclerotic heart disease of native coronary artery without angina pectoris (principal); I11.9 Hypertensive heart disease without heart failure; E78.5 Hyperlipidemia, unspecified; I44.7 Left bundle-branch block, unspecified; M96.1 Postlaminectomy syndrome, not elsewhere classified; I70.213 Atherosclerosis of native arteries of extremities with intermittent claudication, bilateral legs; M19.90 Unspecified osteoarthritis, unspecified site; I65.23 Occlusion and stenosis of bilateral carotid arteries; E66.9 Obesity, unspecified; Z68.34 Body mass index [BMI] 34.0-34.9, adult; Z79.02 Long term (current) use of antithrombotics/antiplatelets; Z79.82 Long term (current) use of aspirin; Z79.899 Other long term (current) drug therapy; Z88.8 Allergy status to other drugs, medicaments and biological substances; Z88.5 Allergy status to narcotic agent; Z95.5 Presence of coronary angioplasty implant and graft; Z96.652 Presence of left artificial knee joint; Z87.891 Personal history of nicotine dependence; Z98.1 Arthrodesis status
CPT/HCPCS: 71045; 80053; 80061; 85027; 85610; 85730; 87081; 93458; C1760; C1894; 36415